=== PATIENT | female | born 1965 | race African-American/Black ===

== ENCOUNTER 2016-03-13 11:38 | Emergency (ER) | payer OTHER ==
[2016-03-13 11:43] VITALS: TEMP 97.7; BMI 23.6
[2016-03-13] MEDS ORDERED: ONDANSETRON 4 MG/2 ML VIAL IVPB ONE (13:28)
[2016-03-13] MEDS ORDERED: SODIUM CHLORIDE 1,000 ML IV ONE (13:44)
--- NOTE | 2016-03-13 13:45 | PDOC ---
History of Present Illness <Ana Mott - Last Filed: 03/13/16 21:26> - General History Source: Patient Exam Limitations: No Limitations - History of Present Illness Travel History: No Initial Comments: 03/13/16 14:10 50y F hx of ?colitis (nonspecific thickening, but was not given abx), chronic back pain multiple back surgeries hl, ectopic x 2, presents with intermittent sharp abdominal pain associated with vomiting that is yellowish with strek of blood this AM so pt presented to the ED. Pt also endorses multliple episodes of loose watery stool. no associated fever/chills, no chest pain, sob, palitations , back pain. no sick contacts. pt currently not working due to back issues no recent travel. <Nick Dee - Last Filed: 03/14/16 09:22> - General Chief Complaint: Vomiting/Diarrhea Stated Complaint: DIARRHEA, VOMITING Time Seen by Provider: 03/13/16 13:30 Past History <Ana Mott - Last Filed: 03/13/16 21:26> - Past Medical History Anemia: No Asthma: No Cancer: No Cardiac Disorders: No CVA: No COPD: No CHF: No Dementia: No Diabetes: No GI Disorders: Yes (diverticulitis, COLITIS) Disorders: No HTN: No Hypercholesterolemia: Yes Liver Disease: No Suicide Attempt (Hx): No Seizures: No Thyroid Disease: No - Surgical History Abdominal Surgery: Yes (Ectopic x 2) Appendectomy: No Cardiac Surgery: No Cholecystectomy: No Lung Surgery: No Neurologic Surgery: No Orthopedic Surgery: Yes (cervical fusion,) - Immunization History Immunization Up to Date: Yes (no flu) - Psycho/Social/Smoking Cessation Hx Anxiety: No Suicidal Ideation: No Smoking History: Never smoked Have you smoked in the past 12 months: No Hx Alcohol Use: No Drug/Substance Use Hx: No Substance Use Type: None Hx Substance Use Treatment: No <Nick Dee - Last Filed: 03/14/16 09:22> - Past Medical History Allergies/Adverse Reactions: Allergies Allergy/AdvReac Type Severity Reaction Status Date / Time Penicillins Allergy Severe Difficulty Verified 03/13/16 11:43 Breathing Sulfa (Sulfonamide Allergy Verified 03/13/16 11:43 Antibiotics) Home Medications: Ambulatory Orders Oxycodone HCl/Acetaminophen [Percocet 5-325 mg Tablet] 1 - 2 tab PO Q6H PRN #12 tab MDD 4 02/05/16 Ciprofloxacin [Cipro (Restricted To Id)] 500 mg PO Q12H #20 tablet 03/13/16 Metronidazole [Flagyl -] 500 mg PO TID #30 tablet 03/13/16 Morphine Sulfate [Kailee] 60 mg PO DAILY 03/13/16 Review of Systems - Review of Systems Able to Perform ROS?: Yes Comments:: 03/13/16 14:12 Constitutional - no reported Fever, Chills, weakness, HEENT: no reported vision changes, sore throat Respiratory: no reported cough, sob, hemoptysis Cardiac: no reported chest pain, palpitations, light headedness, leg swelling Abd/GI: +abd pain, nausea, vomiting, diarrhea no reported blood per rectum, melena, : no reported dysuria, frequency, discharge Musculskelatal - no reported back pain, joint swelling skin - no reported bruising, erythema, rash neurological: no reported headache, numbness, focal weakness, tingling, ataxia, weakness hematologic: no reported anemia, easy bruising, easy bleeding <Nick Dee - Last Filed: 03/14/16 09:22> *Physical Exam - Vital Signs Last Vital Signs Temp Pulse Resp BP Pulse Ox 97.7 F 73 20 116/84 100 03/13/16 11:40 03/13/16 11:40 03/13/16 11:40 03/13/16 11:40 03/13/16 11:40 <Ana Mott - Last Filed: 03/13/16 21:26> - Vital Signs Last Vital Signs Temp Pulse Resp BP Pulse Ox 97.7 F 73 20 116/84 100 03/13/16 11:40 03/13/16 11:40 03/13/16 11:40 03/13/16 11:40 03/13/16 11:40 - Physical Exam Comments: 03/13/16 14:12 GENERAL: The patient is awake, alert, and fully oriented, Nontoxic - in no acute distress. HEAD: Normocephalic, atraumatic. EYES: extraocular movements intact, sclera anicteric, conjunctiva clear. ENT: Normal voice, drym m ucous membranes. NECK: Normal range of motion, supple LUNGS: Breath sounds equal, clear to auscultation bilaterally. No wheezes, no rhonchi, no rales. HEART: Regular rate and rhythm, normal S1 and S2 without murmur, rub or gallop. ABDOMEN: abd mild diffuse tenderness, active bowel sounds. EXTREMITIES: no edema NEUROLOGICAL: No facial assymetry, Normal speech, moving all 4 extremities spontaneously and symmetrically PSYCH: Normal mood, normal affect. SKIN: Warm, Dry, normal turgor, <Leila,Nick - Last Filed: 03/14/16 09:22> ED Treatment Course - LABORATORY CBC & Chemistry Diagram: 03/13/16 14:24 03/13/16 15:13 - ADDITIONAL ORDERS Additional order review: Laboratory Results 03/13/16 03/13/16 03/13/16 15:13 14:24 14:24 Sodium 143 Cancelled Potassium 4.9 Cancelled Chloride 106 Cancelled Carbon Dioxide 27 Cancelled Anion Gap 10 Cancelled BUN 10 Cancelled Creatinine 1.0 Cancelled Creat Clearance w eGFR 58.93 Cancelled Random Glucose 81 Cancelled Calcium 9.2 Cancelled Total Bilirubin 0.5 Cancelled AST 7 L D Cancelled ALT 10 L D Cancelled Alkaline Phosphatase 100 Cancelled Total Protein 6.5 Cancelled Albumin 3.7 Cancelled Serum , Qual Negative Urine Color Yellow Urine Appearance Clear Urine pH 6.0 Ur Specific [place] 1.028 Urine Protein Negative Urine Glucose (UA) Negative Urine Ketones Negative Urine Blood Negative Urine Nitrite Negative Urine Bilirubin Negative Urine Urobilinogen Negative Ur Leukocyte Esterase Trace H D Urine RBC 1 Urine WBC 4 Ur Epithelial Cells Rare Urine Mucus Many 03/13/16 14:24 RBC 5.23 H MCV 79.7 L MCHC 31.5 L RDW 16.0 H MPV 8.5 Neutrophils % 83.7 H Lymphocytes % 10.5 D Monocytes % 5.3 Eosinophils % 0.1 Basophils % 0.4 - Medications Given in the ED: ED Medications Discontinued Medications Generic Name Dose Route Start Last Admin Trade Name Freq PRN Reason Stop Dose Admin Sodium Chloride 1,000 mls @ 1,000 mls/hr 03/13/16 13:44 03/13/16 14:21 Normal Saline - IV 03/13/16 14:43 1,000 mls/hr .Q1H ONE Administration Famotidine/Sodium Chloride 20 50 mls @ 100 mls/hr 03/13/16 14:00 03/13/16 14:22 mg/ Miscellaneous IVPB 03/13/16 14:29 100 mls/hr ONCE ONE Administration Ketorolac Tromethamine 30 mg 03/13/16 17:00 03/13/16 17:24 Toradol Injection - IVPUSH 03/13/16 17:01 30 mg ONCE ONE Administration Morphine Sulfate 2 mg 03/13/16 14:01 03/13/16 14:22 Morphine Injection - IVPUSH 03/13/16 14:02 2 mg ONCE ONE Administration Ondansetron HCl 4 mg 03/13/16 13:28 03/13/16 14:21 Zofran Injection IVPB 03/13/16 13:29 4 mg ONCE ONE Administration <Ana Mott - Last Filed: 03/13/16 21:26> - LABORATORY CBC & Chemistry Diagram: 03/13/16 14:24 03/13/16 15:13 <Nick Dee - Last Filed: 03/14/16 09:22> Medical Decision Making - Medical Decision Making 03/13/16 21:26 Patient Name: Carmen Khoury THIS IS A PRELIMINARY REPORT FROM [facility] EXAM: CT abdomen and pelvis with intravenous and oral contrast IMAGES: [id number] EXAM DATE AND TIME: 2016-03-13 18:53:30.0 REASON FOR EXAM: Abdominal pain and vomiting COMPARISON: None. FINDINGS: The visualized lung bases are clear The upper abdominal visceral organs are unremarkable Small umbilical hernia containing fat There is no bowel obstruction or distention The appendix is normal There is thickening about the base of the cecum in addition to mild circumferential thickening of the distal transverse, descending and sigmoid colon compatible with nonspecific colitis No free air, free fluid or loculated collections Posterior bilateral fixation rods and pedicle screws at L4/L5 with L4 laminectomy and discectomy with disc implants and bone grafts THIS DOCUMENT HAS BEEN ELECTRONICALLY SIGNED <Ana Mott - Last Filed: 03/13/16 21:26> - Medical Decision Making 03/13/16 14:18 suspect gastritis vs. gastronetneritis vs colitis minimal tendeness will ck labs will reassess 03/13/16 19:18 the labs were reivewed ct was obtained due to persistent pain pt s/p CT, and currently awaiting results pt was signed out to dr. mott to fu with CT results and reassess the patient. pt is currently feeling improved, ambulating around the ED, asked to take her IV out, but will defer until the CT results are back. A portion of this note was documented by scribe services under my direction. I have reviewed the details of the note, within reason, and agree with the documentation with the following case summary and management plan written by me <Nick Dee - Last Filed: 03/14/16 09:22> *DC/Admit/Observation/Transfer - Discharge Dispostion Admit: No <Ana Mott - Last Filed: 03/13/16 21:26> <Nick Dee - Last Filed: 03/14/16 09:22> Diagnosis at time of Disposition: Colitis, acute - Discharge Dispostion Disposition: HOME Condition at time of disposition: Improved - Prescriptions Prescriptions: Ciprofloxacin [Cipro (Restricted To Id)] 500 mg PO Q12H #20 tablet Metronidazole [Flagyl -] 500 mg PO TID #30 tablet - Referrals Referrals: Skip Peterson MD [Primary Care Provider] - Alex Pathak MD [Staff Physician] -
[2016-03-13] MEDS ORDERED: FAMOTIDINE 20 MG/50 ML IVPB 20 MG in PREMIX 50 IVPB ONE (14:00)
[2016-03-13] MEDS ORDERED: morphine CARPU-JECT 2 MG/1 ML DISP.SYRIN IVPUSH ONE (14:01)
[2016-03-13] MEDS ORDERED: morphine CARPU-JECT 2 MG/1 ML DISP.SYRIN ONE (14:06)
[2016-03-13] MEDS ORDERED: FAMOTIDINE 20 MG/50 ML IVPB 50 ML IVPB ONE (14:06)
[2016-03-13] MEDS ORDERED: ONDANSETRON 4 MG/2 ML VIAL ONE (14:06)
[2016-03-13 14:29] LABS: BASOPHIL 0.4 % (0-2.0); EOSINOPHIL 0.1 % (0-4.5); MCH 25.1 pg (25.7-33.7); MCHC 31.5 g/dl (32.0-36.0); MEAN CELL VOLUME 79.7 fl (80-96); MEAN PLT VOLUME 8.5 fl (7.5-11.1); NEUTROPHILS 83.7 % (42.8-82.8); PLATELET COUNT 433 K/MM3 (134-434); WHITE BLOOD COUNT 10.7 K/mm3 (4.0-10.0)
[2016-03-13 15:48] LABS: ALBUMIN 3.7 g/dl (3.4-5.0); BILIRUBIN,TOTAL 0.5 mg/dL (0.2-1.0); CALCIUM 9.2 mg/dL (8.5-10.1); TOT PROT 6.5 g/dl (6.4-8.2)
[2016-03-13] MEDS ORDERED: KETOROLAC TROMETHAMINE 30 MG/1 ML VIAL IVPUSH ONE (17:00)
[2016-03-13] MEDS ORDERED: KETOROLAC TROMETHAMINE 30 MG/1 ML VIAL ONE (17:01)
[2016-03-13 18:47] LABS: URINE APPEARANCE CLEAR; URINE BILIRUBIN NEGATIVE (NEGATIVE); URINE BLOOD NEGATIVE (NEGATIVE); URINE COLOR YELLOW; URINE GLUCOSE (UA) NEGATIVE (NEGATIVE); URINE KETONE NEGATIVE (NEGATIVE); URINE NITRITE NEGATIVE (NEGATIVE); URINE PROTEIN NEGATIVE (NEGATIVE); URINE UROBILINOGEN NEGATIVE E.U./dl (0.2-1.0)
[2016-03-13 18:53] LABS: URINE LEUK ESTERASE TRACE (NEGATIVE)
[2016-03-13 19:00] LABS: URINE MUCUS MANY; URINE RBC 1 /hpf (0-3); URINE WBC 4 /hpf (3-5)
[2016-03-13] MEDS ORDERED: LEVOFLOXACIN 500 MG IVPB 100 ML IVPB ONE ×2 (19:56→20:59)
[2016-03-13] MEDS ORDERED: METRONIDAZOLE 500 MG PREMIXED 100 ML IVPB ONE ×2 (19:58→20:25)
[2016-03-13 21:44] VITALS: BP 120/75; PULSE 72
== END 2016-03-13 21:45 | disposition home or self-care (01) ==
LOC: JER 11:38
PROC: 3E0337Z Introduction of Electrolytic and Water Balance Substance into Peripheral Vein, Percutaneous Approach (ICD-10-PCS; principal; 2016-03-13)
PROC: 3E033GC Introduction of Other Therapeutic Substance into Peripheral Vein, Percutaneous Approach (ICD-10-PCS; 2016-03-13)
PROC: 3E033NZ Introduction of Analgesics, Hypnotics, Sedatives into Peripheral Vein, Percutaneous Approach (ICD-10-PCS; 2016-03-13)
PROC: 3E0333Z Introduction of Anti-inflammatory into Peripheral Vein, Percutaneous Approach (ICD-10-PCS; 2016-03-13)
DX: K52.89 Other specified noninfective gastroenteritis and colitis (principal)
CPT/HCPCS: 36415; 74177-TC; 80053; 81003; 81015; 84703; 85025; 96361; 96365; 96375; 99284-25

== ENCOUNTER 2016-08-06 16:17 | Emergency (ER) | payer OTHER ==
[2016-08-06 16:22] VITALS: BP 99/68; PULSE 86; TEMP 98.2; BMI 23.9
--- NOTE | 2016-08-06 16:33 | PDOC ---
History of Present Illness - General History Source: Patient Exam Limitations: No Limitations - History of Present Illness Initial Comments: 08/06/16 17:17 The patient is a 50 year old female with past medical history of chronic back pain and colitis who presents to the ED with back pain. She qualifies the pain as her typical pain that is unrelieved by her Oxycodone, Morphine, or muscle relaxers and is radiating down her bilateral knees. She does not relate her pain to any trauma or falls. She denies any recent fevers, chills, nausea, vomiting, diarrhea. She denies any chest pain or shortness of breath. She denies any urinary symptoms. PCP: Skip Peterson <Lisseth Lewis - Last Filed: 08/06/16 17:16> <Tess Flores - Last Filed: 08/06/16 18:00> - General Chief Complaint: Back Pain Stated Complaint: PAIN Time Seen by Provider: 08/06/16 16:33 Past History <Lisseth Lewis - Last Filed: 08/06/16 17:16> - Past Medical History Anemia: No Asthma: No Cancer: No Cardiac Disorders: No CVA: No COPD: No CHF: No Dementia: No Diabetes: No GI Disorders: Yes (diverticulitis, COLITIS) Disorders: No HTN: No Hypercholesterolemia: Yes Liver Disease: No Suicide Attempt (Hx): No Seizures: No Thyroid Disease: No Other medical history: SPINAL STENOSIS. - Surgical History Abdominal Surgery: Yes (Ectopic x 2) Appendectomy: No Cardiac Surgery: No Cholecystectomy: No Lung Surgery: No Neurologic Surgery: Yes (laminectomy with fusion.) Orthopedic Surgery: Yes (cervical fusion,) - Immunization History Immunization Up to Date: Yes (no flu) - Psycho/Social/Smoking Cessation Hx Anxiety: No Suicidal Ideation: No Smoking History: Never smoked Have you smoked in the past 12 months: No Hx Alcohol Use: No Drug/Substance Use Hx: No Substance Use Type: None Hx Substance Use Treatment: No <Tess Flores - Last Filed: 08/06/16 18:00> - Past Medical History Allergies/Adverse Reactions: Allergies Allergy/AdvReac Type Severity Reaction Status Date / Time Penicillins Allergy Severe Difficulty Verified 08/06/16 16:18 Breathing Sulfa (Sulfonamide Allergy Verified 08/06/16 16:18 Antibiotics) Home Medications: Ambulatory Orders Oxycodone HCl/Acetaminophen [Percocet 5-325 mg Tablet] 1 - 2 tab PO Q6H PRN #12 tab MDD 4 02/05/16 Ciprofloxacin [Cipro (Restricted To Id)] 500 mg PO Q12H #20 tablet 03/13/16 Metronidazole [Flagyl -] 500 mg PO TID #30 tablet 03/13/16 Morphine Sulfate [Kailee] 60 mg PO DAILY 03/13/16 Review of Systems - Review of Systems Able to Perform ROS?: Yes Comments:: 08/06/16 17:17 GENERAL/CONSTITUTIONAL: No fever or chills. No weakness. HEAD, EYES, EARS, NOSE AND THROAT: No change in vision. No ear pain or discharge. No sore throat. CARDIOVASCULAR: No chest pain or shortness of breath. RESPIRATORY: No cough, wheezing, or hemoptysis. GASTROINTESTINAL: No nausea, vomiting, diarrhea or constipation. GENITOURINARY: No dysuria, frequency, or change in urination. MUSCULOSKELETAL: Present: back pain No neck pain. SKIN: No rash NEUROLOGIC: No headache, vertigo, loss of consciousness, or change in strength/ sensation. ENDOCRINE: No increased thirst. No abnormal weight change. HEMATOLOGIC/LYMPHATIC: No anemia, easy bleeding, or history of blood clots. ALLERGIC/IMMUNOLOGIC: No hives or skin allergy. All Other Systems: Reviewed and Negative <Lisseth Lewis - Last Filed: 08/06/16 17:16> *Physical Exam - Vital Signs Last Vital Signs Temp Pulse Resp BP Pulse Ox 98.2 F 86 18 99/68 99 08/06/16 16:17 08/06/16 16:17 08/06/16 16:17 08/06/16 16:17 08/06/16 16:17 - Physical Exam Comments: 08/06/16 17:18 GENERAL: Awake, alert, and fully oriented, in no acute distress HEAD: No signs of trauma EYES: PERRLA, EOMI, sclera anicteric, conjunctiva clear ENT: Auricles normal inspection, hearing grossly normal, nares patent, oropharynx clear without exudates. Moist mucosa NECK: Normal ROM, supple, no lymphadenopathy, JVD, or masses LUNGS: Breath sounds equal, clear to auscultation bilaterally. No wheezes, and no crackles HEART: Regular rate and rhythm, normal S1 and S2, no murmurs, rubs or gallops ABDOMEN: Soft, nontender, normoactive bowel sounds. No guarding, no rebound. No masses EXTREMITIES: Normal range of motion, no edema. No clubbing or cyanosis. No cords, erythema, or tenderness NEUROLOGICAL: Normal speech, normal gait. 5/5 great toe extension bilaterally, 5 /5 plantar flexion bilaterally, 5/5 knee flexion bilaterally, intact to light touch SKIN: Warm, Dry, normal turgor, no rashes or lesions noted. BACK: mild tenderness to thoracic and lumbar spine <Lisseth Lewis - Last Filed: 08/06/16 17:16> - Vital Signs Last Vital Signs Temp Pulse Resp BP Pulse Ox 98.2 F 86 18 99/68 99 08/06/16 16:17 08/06/16 16:17 08/06/16 16:17 08/06/16 16:17 08/06/16 16:17 <Tess Flores - Last Filed: 08/06/16 18:00> Medical Decision Making - Medical Decision Making 08/06/16 17:42 Pt presents to the ED complaining of acute exacerbation of her chronic back pain that has been persistent over the last three days. Denies new complaints-- states that the pain is exactly the same as her chronic pain, and that she has tried her home doses of oxycodone and morphine without relief. Neurologically intact on exam, denies urinary complaints. Will treat with toradol and a small dose of dilaudid and discharge home when pain is controlled. 08/06/16 17:58 Patient feels improved and is asking to go home. Will discharge patient. <Tess Flores - Last Filed: 08/06/16 18:00> *DC/Admit/Observation/Transfer - Attestations Scribe Attestion: 08/06/16 17:20 Documentation prepared by Lisseth Lewis, acting as durable medical equipment repairer for Tess Flores MD. <Lisseth Lewis - Last Filed: 08/06/16 17:16> - Discharge Dispostion Admit: No <Tess Flores - Last Filed: 08/06/16 18:00> Diagnosis at time of Disposition: Lumbar radiculopathy, chronic - Discharge Dispostion Disposition: HOME Condition at time of disposition: Good - Referrals Referrals: Skip Peterson MD [Primary Care Provider] - - Patient Instructions Printed Discharge Instructions: DI for Low Back Pain
[2016-08-06] MEDS ORDERED: HYDROmorphone HCL CARPU-JECT 1 MG/1 ML DISP.SYRIN IM ONE (16:51)
[2016-08-06] MEDS ORDERED: KETOROLAC TROMETHAMINE 30 MG/1 ML VIAL IM ONE (16:51)
[2016-08-06] MEDS ORDERED: HYDROmorphone HCL CARPU-JECT 1 MG/1 ML DISP.SYRIN ONE (17:19)
[2016-08-06] MEDS ORDERED: KETOROLAC TROMETHAMINE 30 MG/1 ML VIAL ONE (17:19)
== END 2016-08-06 18:15 | disposition home or self-care (01) ==
LOC: JER 16:17 → SUPCPDRO 16:17 → JER 18:15
PROC: 3E0333Z Introduction of Anti-inflammatory into Peripheral Vein, Percutaneous Approach (ICD-10-PCS; principal; 2016-08-06)
PROC: 3E033NZ Introduction of Analgesics, Hypnotics, Sedatives into Peripheral Vein, Percutaneous Approach (ICD-10-PCS; 2016-08-06)
DX: M54.16 Radiculopathy, lumbar region (principal); G89.29 Other chronic pain; Z98.1 Arthrodesis status
CPT/HCPCS: 99282-25

== ENCOUNTER 2016-12-12 21:34 | Emergency (ER) | payer OTHER ==
[2016-12-12 21:46] VITALS: BP 146/89; PULSE 76; TEMP 98.3; BMI 23.6
--- NOTE | 2016-12-12 22:51 | PDOC ---
History of Present Illness - General History Source: Patient Exam Limitations: No Limitations - History of Present Illness Initial Comments: 12/13/16 03:59 51F with pmh of . <Alan Damico - Last Filed: 12/13/16 04:01> <Ana Perez - Last Filed: 12/13/16 04:28> - General Chief Complaint: Pain, Acute Stated Complaint: ABDOMINAL PAIN Time Seen by Provider: 12/12/16 22:26 Past History - Past Medical History Anemia: No Asthma: No Cancer: No Cardiac Disorders: No CVA: No COPD: No CHF: No Dementia: No Diabetes: No GI Disorders: Yes (diverticulitis, COLITIS) Disorders: No HTN: No Hypercholesterolemia: Yes Liver Disease: No Seizures: No Thyroid Disease: No - Surgical History Abdominal Surgery: Yes (Ectopic x 2) Appendectomy: No Cardiac Surgery: No Cholecystectomy: No Lung Surgery: No Neurologic Surgery: Yes (laminectomy with fusion.) Orthopedic Surgery: Yes (cervical fusion,) - Immunization History Immunization Up to Date: Yes (no flu) - Suicide/Smoking/Psychosocial Hx Smoking History: Never smoked Have you smoked in the past 12 months: No Information on smoking cessation initiated: No Hx Alcohol Use: No Drug/Substance Use Hx: No Substance Use Type: None Hx Substance Use Treatment: No <Alan Damico - Last Filed: 12/13/16 04:01> <Ana Perez - Last Filed: 12/13/16 04:28> - Past Medical History Allergies/Adverse Reactions: Allergies Allergy/AdvReac Type Severity Reaction Status Date / Time Penicillins Allergy Severe Difficulty Verified 12/12/16 21:45 Breathing Sulfa (Sulfonamide Allergy Verified 12/12/16 21:45 Antibiotics) Home Medications: Ambulatory Orders Loperamide HCl [Imodium -] 2 mg PO DAILY #7 capsule 12/13/16 Ondansetron HCl [Zofran] 8 mg PO PRN #7 tablet 12/13/16 Review of Systems - Review of Systems Constitutional: No: Diaphoresis, Loss of Appetite HEENTM: No: Symptoms Reported Respiratory: No: Symptoms reported Cardiac (ROS): No: Symptoms Reported ABD/GI: Yes: See HPI, Abd. Pain w/ defecation, Diarrhea, Vomiting. No: Difficulty Swallowing, Rectal Bleeding <Alan Damico - Last Filed: 12/13/16 04:01> *Physical Exam - Vital Signs Last Vital Signs Temp Pulse Resp BP Pulse Ox 98.3 F 76 18 146/89 99 12/12/16 21:42 12/12/16 21:42 12/12/16 21:42 12/12/16 21:42 12/12/16 21:42 - Physical Exam General Appearance: Yes: Nourished, Appropriately Dressed HEENT: positive: EOMI, MAR[place], Normal ENT Inspection Neck: negative: Tender Respiratory/Chest: positive: Lungs Clear, Normal Breath Sounds. negative: Chest Tender Cardiovascular: positive: Regular Rhythm, Regular Rate, S1, S2 Gastrointestinal/Abdominal: positive: Normal Bowel Sounds, Tender, Soft, Tenderness. negative: Guarding <Alan Damico - Last Filed: 12/13/16 04:01> - Vital Signs Last Vital Signs Temp Pulse Resp BP Pulse Ox 98.3 F 76 18 146/89 99 12/12/16 21:42 12/12/16 21:42 12/12/16 21:42 12/12/16 21:42 12/12/16 21:42 <Ana Perez - Last Filed: 12/13/16 04:28> ED Treatment Course - LABORATORY CBC & Chemistry Diagram: 12/13/16 01:00 12/13/16 01:00 <Alan Damico - Last Filed: 12/13/16 04:01> - LABORATORY CBC & Chemistry Diagram: 12/13/16 01:00 12/13/16 01:00 - ADDITIONAL ORDERS Additional order review: Laboratory Results 12/12/16 00:30 Stool Occult Blood Negative - Medications Given in the ED: ED Medications Discontinued Medications Generic Name Dose Route Start Last Admin Trade Name Freq PRN Reason Stop Dose Admin Sodium Chloride 1,000 mls @ 1,000 mls/hr 12/12/16 23:36 12/13/16 00:00 Normal Saline - IV 12/13/16 00:35 1,000 mls/hr ASDIR STA Administration <Ana Perez - Last Filed: 12/13/16 04:28> Medical Decision Making - Medical Decision Making 12/13/16 01:13 Pt comes with abdominal pain x 2 days and she states that she has history of diverticulitis/diverticulosis. States that she has had nausea and vomiting and has been unable to keep anything down. Pt is afebrile. She will be hydrated. Labs pending still; we called the lab and they state that they just received labs. Pt is drinking for CT abd /pelvis. 12/13/16 04:27 Patient Name: HUDSON MARIE THIS IS A PRELIMINARY REPORT FROM [facility] DATE OF SERVICE: 2016-12-13 01:51:11 IMAGES: [id number] EXAM: CT ABDOMEN AND PELVIS with and without contrast HISTORY:Rule out colitis COMPARISON: None. FINDINGS:Lung bases are clear. The visualized cardiac chambers are normal size and configuration. Normal liver, gallbladder, pancreas, spleen, adrenal glands and kidneys. The stomach and abdominal small and large bowel are normal. There is no aortic aneurysm. There is no significant retroperitoneal lymphadenopathy. Small fat containing umbilical hernia is noted. The pelvic small and large bowel are normal. The appendix is normal. The uterus and adnexal structures are normal. Urinary bladder is unremarkable. There is a small amount of pelvic free fluid. No discrete pelvic lymphadenopathy is identified. Status post lumbar fusion. IMPRESSION: No definite acute pathology. THIS DOCUMENT HAS BEEN ELECTRONICALLY SIGNED <Ana Perez - Last Filed: 12/13/16 04:28> *DC/Admit/Observation/Transfer - Discharge Dispostion Admit: No <Alan Damico - Last Filed: 12/13/16 04:01> <Ana Perez - Last Filed: 12/13/16 04:28> Diagnosis at time of Disposition: Other specified noninfective gastroenteritis and colitis - Prescriptions Prescriptions: Loperamide HCl [Imodium -] 2 mg PO DAILY #7 capsule Ondansetron HCl [Zofran] 8 mg PO PRN #7 tablet - Referrals Referrals: Alex Pathak MD [Staff Physician] - - Patient Instructions Printed Discharge Instructions: Inflammatory Bowel Disease, DI for Ulcerative Colitis, DI for Gastritis Additional Instructions: Follow up with GI doctor Dr. Alex Pathak
[2016-12-12] MEDS ORDERED: SODIUM CHLORIDE 1,000 ML IV STA (23:36)
[2016-12-12] MEDS ORDERED: ACETAMINOPHEN 1000 MG/100 ML VIAL (NON FORMULARY) IVPB ONE (23:50)
[2016-12-13 01:14] LABS: MCH 26.4 pg (25.7-33.7); MCHC 32.6 g/dl (32.0-36.0); MEAN CELL VOLUME 81.2 fl (80-96); MEAN PLT VOLUME 8.6 fl (7.5-11.1); PLATELET COUNT 330 K/MM3 (134-434); RDW 15.1 % (11.6-15.6); WHITE BLOOD COUNT 8.7 K/mm3 (4.0-10.0)
[2016-12-13] MEDS ORDERED: ACETAMINOPHEN INJECTION 100 ML IVPB ONE (01:22)
[2016-12-13 01:41] LABS: ALBUMIN 3.9 g/dl (3.4-5.0); ALK PHOS 102 U/L (45-117); ANION GAP 10 (8-16); BILIRUBIN,TOTAL 1.2 mg/dL (0.2-1.0); C-REACTIVE PROTEIN < 0.3 MG/DL (0.00-0.3); CALCIUM 9.3 mg/dL (8.5-10.1); CO2 26 mmol/L (21-32); CREATININE 0.9 mg/dL (0.55-1.02); GLUCOSE,RANDOM 81 mg/dL (74-106); SGOT/AST 9 U/L (15-37); SGPT/ALT 23 U/L (12-78); TOT PROT 6.8 g/dl (6.4-8.2)
[2016-12-13 02:35] LABS: ERYTHROCYTE SEDIMENTATION RATE 5 mm/hr (0-30)
--- NOTE | 2016-12-13 04:10 | PDOC ---
Attending Attestation - Resident Resident Name: Alan Damico - HPI HPI: 12/13/16 04:09 Pt comes with abd pain - Physicial Exam PE: 12/13/16 04:09 As above. Pt has diffuse abd tenderness; guaiac negative; labs normal; CT scan normal also. No sign of diverticulitis/diverticulosis. Follow outpatient with GI. 12/13/16 04:51 Agree with resident exam. - Medical Decision Making 12/13/16 04:51 Patient Name: HUDSON MARIE THIS IS A PRELIMINARY REPORT FROM [facility] DATE OF SERVICE: 2016-12-13 01:51:11 IMAGES: [id number] EXAM: CT ABDOMEN AND PELVIS with and without contrast HISTORY:Rule out colitis COMPARISON: None. FINDINGS:Lung bases are clear. The visualized cardiac chambers are normal size and configuration. Normal liver, gallbladder, pancreas, spleen, adrenal glands and kidneys. The stomach and abdominal small and large bowel are normal. There is no aortic aneurysm. There is no significant retroperitoneal lymphadenopathy. Small fat containing umbilical hernia is noted. The pelvic small and large bowel are normal. The appendix is normal. The uterus and adnexal structures are normal. Urinary bladder is unremarkable. There is a small amount of pelvic free fluid. No discrete pelvic lymphadenopathy is identified. Status post lumbar fusion. IMPRESSION: No definite acute pathology. THIS DOCUMENT HAS BEEN ELECTRONICALLY SIGNED
== END 2016-12-13 05:30 | disposition home or self-care (01) ==
LOC: JER 21:34
PROC: 3E0337Z Introduction of Electrolytic and Water Balance Substance into Peripheral Vein, Percutaneous Approach (ICD-10-PCS; principal; 2016-12-12)
PROC: 3E033NZ Introduction of Analgesics, Hypnotics, Sedatives into Peripheral Vein, Percutaneous Approach (ICD-10-PCS; 2016-12-12)
DX: K52.9 Noninfective gastroenteritis and colitis, unspecified (principal)
CPT/HCPCS: 36415; 74178-TC; 80053; 82272; 85027; 85651; 86140; 96361; 96374; 99281-25

== ENCOUNTER 2017-09-05 10:20 | Observation (INO) | payer OTHER ==
[2017-09-05 10:39] VITALS: TEMP 98.7; BMI 23.9
[2017-09-05] MEDS ORDERED: morphine CARPU-JECT 4 MG/1 ML DISP.SYRIN IVPUSH ONE ×3 (11:23→14:52)
[2017-09-05] MEDS ORDERED: SODIUM CHLORIDE 1,000 ML IV SCH (11:30)
[2017-09-05] MEDS ORDERED: ONDANSETRON 4 MG/2 ML VIAL IVPB ONE (12:01)
[2017-09-05] MEDS ORDERED: morphine SULFATE 4 MG/ML VIAL ONE (12:03)
[2017-09-05] MEDS ORDERED: ONDANSETRON 4 MG/2 ML VIAL ONE (12:03)
[2017-09-05 12:39] LABS: BASO % 0.5 % (0-2.0); EOS % 0.1 % (0-4.5); HEMATOCRIT 42.9 % (32.4-45.2); HEMOGLOBIN 13.8 GM/dL (10.7-15.3); LYMPH % 11.1 % (8-40); MCH 26.5 pg (25.7-33.7); MCHC 32.2 g/dl (32.0-36.0); MEAN CELL VOLUME 82.3 fl (80-96); MEAN PLT VOLUME 8.9 fl (7.5-11.1); MONO % 3.7 % (3.8-10.2); NEUT % 84.6 % (42.8-82.8); PLATELET COUNT 306 K/MM3 (134-434); RBC 5.21 M/mm3 (3.60-5.2); RDW 14.5 % (11.6-15.6); WHITE BLOOD COUNT 10.3 K/mm3 (4.0-10.0)
[2017-09-05 13:17] LABS: PROTHROMBIN TIME (PATIENT) 11.3 SEC (9.7-13.0)
[2017-09-05 13:19] LABS: ACTIVATED PTT 24.7 SECONDS (25.2-36.5)
--- NOTE | 2017-09-05 13:55 | PDOC ---
History of Present Illness - History of Present Illness Initial Comments: 09/05/17 13:56 The patient is a 51 year old female with a significant PMH of colitis and diverticulitis presenting with diffuse abdominal pain. The patient describes the abdominal pain as gradual onset, stabbing in nature, constant, and 8/10 in severity. The patient also reports blood per vagina, multiple episodes of diarrhea and noticed blood in her stool. The patient denies any changes in her diet. Patient states she is unable to tolerate PO intake. Patient states her symptoms are similar to her colitis in the past. The patient denies chest pain, shortness of breath, headache and dizziness. Denies fever, chills, nausea, vomit, and constipation. Denies dysuria, frequency, urgency and hematuria. Allergies: Penicillin, sulfa Past surgical history: None reported. Social history: No reported alcohol, drug, or cigarette use. PCP: Dr. Peterson <Evelyn Welsh - Last Filed: 09/05/17 14:12> - General History Source: Patient, Old Records Exam Limitations: No Limitations <Bacilio Gomez - Last Filed: 09/05/17 17:40> - General Chief Complaint: Pain, Acute Stated Complaint: ABD PAIN, VOMITING Time Seen by Provider: 09/05/17 11:22 Past History <Evelyn Welsh - Last Filed: 09/05/17 14:12> - Past Medical History Anemia: No Asthma: No Cancer: No Cardiac Disorders: No CVA: No COPD: No CHF: No Dementia: No Diabetes: No GI Disorders: Yes (diverticulitis, COLITIS) Disorders: No HTN: No Hypercholesterolemia: Yes Liver Disease: No Seizures: No Thyroid Disease: No - Surgical History Abdominal Surgery: Yes (Ectopic x 2) Appendectomy: No Cardiac Surgery: No Cholecystectomy: No Lung Surgery: No Neurologic Surgery: Yes (laminectomy with fusion.) Orthopedic Surgery: Yes (cervical fusion,) - Immunization History Immunization Up to Date: Yes (no flu) - Suicide/Smoking/Psychosocial Hx Smoking History: Never smoked Have you smoked in the past 12 months: No Hx Alcohol Use: No Drug/Substance Use Hx: No Substance Use Type: None Hx Substance Use Treatment: No <Bacilio Gomez - Last Filed: 09/05/17 17:40> - Past Medical History Allergies/Adverse Reactions: Allergies Allergy/AdvReac Type Severity Reaction Status Date / Time Penicillins Allergy Severe Difficulty Verified 09/05/17 10:36 Breathing Sulfa (Sulfonamide Allergy Verified 09/05/17 10:36 Antibiotics) Home Medications: Ambulatory Orders Hydrocodone Bitartrate [Zohydro ER] 10 mg PO BID 09/05/17 Morphine Sulfate 15 mg PO BID 09/05/17 Review of Systems - Review of Systems Able to Perform ROS?: Yes Comments:: 09/05/17 13:56 ADULT ROS GENERAL/CONSTITUTIONAL: No fever or chills. No weakness. HEAD, EYES, EARS, NOSE AND THROAT: No change in vision. No ear pain or discharge. No sore throat. CARDIOVASCULAR: No chest pain or shortness of breath. RESPIRATORY: No cough, wheezing, or hemoptysis. GASTROINTESTINAL: (+) Abdominal pain. (+) Diarrhea. No nausea, vomiting, or constipation. GENITOURINARY: No dysuria, frequency, or change in urination. MUSCULOSKELETAL: No joint or muscle swelling or pain. No neck or back pain. SKIN: No rash NEUROLOGIC: No headache, vertigo, loss of consciousness, or change in strength/ sensation. ENDOCRINE: No increased thirst. No abnormal weight change. HEMATOLOGIC/LYMPHATIC: No anemia, easy bleeding, or history of blood clots. ALLERGIC/IMMUNOLOGIC: No hives or skin allergy. <Evelyn Welsh - Last Filed: 09/05/17 14:12> *Physical Exam - Vital Signs Last Vital Signs Temp Pulse Resp BP Pulse Ox 98.7 F 80 19 129/94 100 09/05/17 10:36 09/05/17 10:36 09/05/17 10:36 09/05/17 10:36 09/05/17 10:36 - Physical Exam Comments: 09/05/17 13:56 ADULT EXAM GENERAL: Awake, alert, and fully oriented, in no acute distress HEAD: No signs of trauma EYES: PERRLA, EOMI, sclera anicteric, conjunctiva clear ENT: Auricles normal inspection, hearing grossly normal, nares patent, oropharynx clear without exudates. Moist mucosa NECK: Normal ROM, supple, no lymphadenopathy, JVD, or masses LUNGS: Breath sounds equal, clear to auscultation bilaterally. No wheezes, and no crackles HEART: Regular rate and rhythm, normal S1 and S2, no murmurs, rubs or gallops ABDOMEN: (+) Tender. Soft, normoactive bowel sounds. No guarding, no rebound. No masses EXTREMITIES: Normal range of motion, no edema. No clubbing or cyanosis. N o cords, erythema, or tenderness <Evelyn Welsh - Last Filed: 09/05/17 14:12> - Vital Signs Last Vital Signs Temp Pulse Resp BP Pulse Ox 98.7 F 80 19 129/94 100 09/05/17 10:36 09/05/17 10:36 09/05/17 10:36 09/05/17 10:36 09/05/17 10:36 - Physical Exam Comments: 09/05/17 14:26 RECTAL: External hemorrhoids appreciated. No anal tears. Brown stool on glove. <Bacilio Gomez - Last Filed: 09/05/17 17:40> ED Treatment Course - LABORATORY CBC & Chemistry Diagram: 09/05/17 12:10 09/05/17 12:10 - ADDITIONAL ORDERS Additional order review: Laboratory Results 09/05/17 09/05/17 09/05/17 12:10 12:10 12:10 PT with INR 11.30 INR 1.00 PTT (Actin FS) 24.7 L Sodium Cancelled Potassium Cancelled Chloride Cancelled Carbon Dioxide Cancelled Anion Gap Cancelled BUN Cancelled Creatinine Cancelled Creat Clearance w eGFR Cancelled Random Glucose Cancelled Lactic Acid 2.7 H* Calcium Cancelled Total Bilirubin Cancelled AST Cancelled ALT Cancelled Alkaline Phosphatase Cancelled C-Reactive Protein Cancelled Total Protein Cancelled Albumin Cancelled Lipase Cancelled 09/05/17 12:10 RBC 5.21 H MCV 82.3 MCHC 32.2 RDW 14.5 MPV 8.9 Neutrophils % 84.6 H Lymphocytes % 11.1 Monocytes % 3.7 L Eosinophils % 0.1 Basophils % 0.5 - Medications Given in the ED: ED Medications Discontinued Medications Generic Name Dose Route Start Last Admin Trade Name Freq PRN Reason Stop Dose Admin Morphine Sulfate 4 mg 09/05/17 11:23 09/05/17 12:11 Morphine Injection - IVPUSH 09/05/17 11:24 4 mg ONCE ONE Administration Morphine Sulfate 4 mg 09/05/17 12:02 09/05/17 12:12 Morphine Injection - IVPUSH 09/05/17 12:03 4 mg ONCE ONE Administration Ondansetron HCl 4 mg 09/05/17 12:01 09/05/17 12:12 Zofran Injection IVPB 09/05/17 12:02 4 mg ONCE ONE Administration <Evelyn Welsh - Last Filed: 09/05/17 14:12> - LABORATORY CBC & Chemistry Diagram: 09/05/17 12:10 09/05/17 14:10 - ADDITIONAL ORDERS Additional order review: Laboratory Results 09/05/17 09/05/17 12:10 12:10 Sodium Cancelled Potassium Cancelled Chloride Cancelled Carbon Dioxide Cancelled Anion Gap Cancelled BUN Cancelled Creatinine Cancelled Creat Clearance w eGFR Cancelled Random Glucose Cancelled Lactic Acid 2.7 H* Calcium Cancelled Total Bilirubin Cancelled AST Cancelled ALT Cancelled Alkaline Phosphatase Cancelled C-Reactive Protein Cancelled Total Protein Cancelled Albumin Cancelled Lipase Cancelled 09/05/17 12:10 RBC 5.21 H MCV 82.3 MCHC 32.2 RDW 14.5 MPV 8.9 Neutrophils % 84.6 H Lymphocytes % 11.1 Monocytes % 3.7 L Eosinophils % 0.1 Basophils % 0.5 - RADIOLOGY Radiology Studies Ordered: Category Date Time Status ABDOMEN & PELVIS CT WITH CONTR [CT] Stat CT Scan 09/05/17 12:02 Ordered TRANSVAGINAL ULTRASOUND US [US] Stat Ultrasound 09/05/17 12:03 Ordered - Medications Given in the ED: ED Medications Discontinued Medications Generic Name Dose Route Start Last Admin Trade Name Kd PRN Reason Stop Dose Admin Morphine Sulfate 4 mg 09/05/17 11:23 09/05/17 12:11 Morphine Injection - IVPUSH 09/05/17 11:24 4 mg ONCE ONE Administration Morphine Sulfate 4 mg 09/05/17 12:02 09/05/17 12:12 Morphine Injection - IVPUSH 09/05/17 12:03 4 mg ONCE ONE Administration Ondansetron HCl 4 mg 09/05/17 12:01 09/05/17 12:12 Zofran Injection IVPB 09/05/17 12:02 4 mg ONCE ONE Administration <Bacilio Gomez - Last Filed: 09/05/17 17:40> Medical Decision Making - Medical Decision Making 09/05/17 13:47 A portion of this note was documented by scribe services under my direction. I have reviewed the details of the note, within reason, and agree with the documentation with the following case summary and management plan written by me. Patient treated in the ED. Nursing notes are reviewed and incorporated into the medical decision-making. Vital signs reviewed. Peripheral IV access obtained by the nurse, laboratory studies are drawn and sent, reviewed and interpreted by myself. Vital Signs Temp Pulse Resp BP Pulse Ox 98.7 F 80 19 129/94 100 09/05/17 10:36 09/05/17 10:36 09/05/17 10:36 09/05/17 10:36 09/05/17 10:36 51-year-old female with past medical history of diverticulitis, multiple back surgeries, colitis presents with diffuse abdominal pain for 2 days. Patient reported worsening abdominal pain. She started noticed persistent lower abdominal pain consistent with her prior abdominal pains. Patient started note some blood in her stools. Incidentally, patient also noted an episode of blood per vagina. She states she is menopausal and has not had this episode before. Reports nausea and vomiting. Given the abdominal pain, differential includes colitis, diverticulitis, other acute abdominal pathology. Rule out bowel obstruction. Labs and CAT scan the abdomen pelvis. With post menopausal bleeding, we'll need to rule out malignant causes. We'll obtain a transvaginal ultrasound. Reassess. 09/05/17 17:40 CBC, BMP 09/05/17 12:10 09/05/17 14:10 CMP Sodium 142 mmol/L (136-145) 09/05/17 14:10 Potassium 4.9 mmol/L (3.5-5.1) 09/05/17 14:10 Chloride 110 mmol/L (98-107) H 09/05/17 14:10 Carbon Dioxide 24 mmol/L (21-32) 09/05/17 14:10 Anion Gap 8 (8-16) 09/05/17 14:10 BUN 13 mg/dL (7-18) 09/05/17 14:10 Creatinine 0.8 mg/dL (0.55-1.02) 09/05/17 14:10 Creat Clearance w eGFR > 60 (>60) 09/05/17 14:10 Random Glucose 73 mg/dL (74-106) L 09/05/17 14:10 Lactic Acid 3.2 mmol/L (0.0-2.0) H* 09/05/17 14:10 Calcium 8.4 mg/dL (8.5-10.1) L 09/05/17 14:10 Total Bilirubin 0.7 mg/dL (0.2-1.0) 09/05/17 14:10 AST 29 U/L (15-37) 09/05/17 14:10 ALT 24 U/L (12-78) 09/05/17 14:10 Alkaline Phosphatase 86 U/L (45-117) 09/05/17 14:10 C-Reactive Protein < 0.3 MG/DL (0.00-0.3) 09/05/17 14:10 Total Protein 6.6 g/dl (6.4-8.2) 09/05/17 14:10 Albumin 3.5 g/dl (3.4-5.0) 09/05/17 14:10 Lipase Cancelled 09/05/17 12:10 CAT scan the head and pelvis demonstrates few diverticula without evidence of acute diverticular. There is a symptomatically collapse of the gastric body. Transvaginal ultrasound demonstrates normal-appearing uterus and normal thickening of the endometrial stripe. The patient continued persistent abdominal pain. Given the elevated lactic acid and similar type pain, and limited reading of CAT scan abdomen pelvis, we'll treat as colitis. Levaquin and Flagyl was ordered. I expect the patient regarding the vaginal ultrasound. I instructed the patient will need further workup either inpatient or outpatient for malignancy workup including cancer. She states that she will follow-up as an outpatient with a occ ther and is aware that this is important. Case is discussed with sharon hospitalist. Accepted to med/surg obs. Case discussed in detail with admitting physician including history, physical exam and ancillary studies. Admitting physician has assumed care for the patient, will follow all pending diagnostics and will complete the evaluation and treatment. <Bacilio Gomez - Last Filed: 09/05/17 17:40> *DC/Admit/Observation/Transfer - Attestations Scribe Attestion: 09/05/17 13:56 Documentation prepared by Evelyn Welsh, acting as medical information officer for Bacilio Gomez MD. <Evelyn Welsh - Last Filed: 09/05/17 14:12> - Discharge Dispostion Decision to Admit order: Yes <Bacilio Gomez - Last Filed: 09/05/17 17:40> Diagnosis at time of Disposition: Colitis - Discharge Dispostion Condition at time of disposition: Stable - Referrals Referrals: Skip Peterson MD [Primary Care Provider] - - Patient Instructions - Post Discharge Activity
[2017-09-05 14:36] LABS: URINE APPEARANCE CLEAR; URINE BILIRUBIN NEGATIVE (<2.0 mg/dL); URINE COLOR LTYELLOW; URINE GLUCOSE (UA) NEGATIVE (NEGATIVE); URINE KETONE NEGATIVE (NEGATIVE); URINE LEUK ESTERASE NEGATIVE (NEGATIVE); URINE NITRITE NEGATIVE (NEGATIVE); URINE PROTEIN NEGATIVE (NEGATIVE); URINE UROBILINOGEN NEGATIVE mg/dL (0.2-1.0)
[2017-09-05 14:42] LABS: EPI CELLS RARE /HPF (FEW); URINE MUCUS RARE
[2017-09-05] MEDS ORDERED: MORPHINE SULFATE 10 MG/1 ML *VIAL ONE (14:53)
[2017-09-05 15:13] LABS: ALBUMIN 3.5 g/dl (3.4-5.0); ANION GAP 8 (8-16); BLOOD UREA NITROGEN 13 mg/dL (7-18); CALCIUM 8.4 mg/dL (8.5-10.1); CHLORIDE 110 mmol/L (98-107); CO2 24 mmol/L (21-32); CREATININE 0.8 mg/dL (0.55-1.02); GLUCOSE,RANDOM 73 mg/dL (74-106); SGPT/ALT 24 U/L (12-78); SODIUM 142 mmol/L (136-145)
[2017-09-05 15:14] LABS: ALK PHOS 86 U/L (45-117); BILIRUBIN,TOTAL 0.7 mg/dL (0.2-1.0); TOT PROT 6.6 g/dl (6.4-8.2)
[2017-09-05 15:14] LABS: HCG,QUALITATIVE URINE NEGATIVE
[2017-09-05 15:17] LABS: ERYTHROCYTE SEDIMENTATION RATE 3 mm/hr (0-30)
[2017-09-05 16:03] LABS: POTASSIUM 4.9 mmol/L (3.5-5.1); SGOT/AST 29 U/L (15-37)
[2017-09-05 20:29] VITALS: BP 135/78; PULSE 79
--- NOTE | 2017-09-05 20:29 | HP ---
CHIEF COMPLAINT: PCP: HISTORY OF PRESENT ILLNESS: ER course was notable for: (1) (2) (3) Recent Travel: PAST MEDICAL HISTORY: PAST SURGICAL HISTORY: Social History: Smoking: Alcohol: Drugs: Family History: Allergies Penicillins Allergy (Severe, Verified 09/05/17 10:36) Difficulty Breathing Sulfa (Sulfonamide Antibiotics) Allergy (Verified 09/05/17 10:36) HOME MEDICATIONS: Home Medications Medication Instructions Recorded Hydrocodone Bitartrate [Zohydro ER] 10 mg PO BID 09/05/17 Morphine Sulfate 15 mg PO BID 09/05/17 REVIEW OF SYSTEMS CONSTITUTIONAL: Absent: fever, chills, diaphoresis, generalized weakness, malaise, loss of appetite, weight change HEENT: Absent: rhinorrhea, nasal congestion, throat pain, throat swelling, difficulty swallowing, mouth swelling, ear pain, eye pain, visual changes CARDIOVASCULAR: Absent: chest pain, syncope, palpitations, irregular heart rate, lightheadedness , peripheral edema RESPIRATORY: Absent: cough, shortness of breath, dyspnea with exertion, orthopnea, wheezing, stridor, hemoptysis GASTROINTESTINAL: Absent: abdominal pain, abdominal distension, nausea, vomiting, diarrhea, constipation, melena, hematochezia GENITOURINARY: Absent: dysuria, frequency, urgency, hesitancy, hematuria, flank pain, genital pain MUSCULOSKELETAL: Absent: myalgia, arthralgia, joint swelling, back pain, neck pain SKIN: Absent: rash, itching, pallor HEMATOLOGIC/IMMUNOLOGIC: Absent: easy bleeding, easy bruising, lymphadenopathy, frequent infections ENDOCRINE: Absent: unexplained weight gain, unexplained weight loss, heat intolerance, cold intolerance NEUROLOGIC: Absent: headache, focal weakness or paresthesias, dizziness, unsteady gait, seizure, mental status changes, bladder or bowel incontinence PSYCHIATRIC: Absent: anxiety, depression, suicidal or homicidal ideation, hallucinations. PHYSICAL EXAMINATION Vital Signs - 24 hr 09/05/17 09/05/17 09/05/17 10:36 16:43 20:28 Temperature 98.7 F Pulse Rate 80 Pulse Rate [ 75 79 Apical] Respiratory 19 18 18 Rate Blood Pressure 129/94 Blood Pressure 138/90 135/78 [Right Arm] O2 Sat by Pulse 100 98 100 Oximetry (%) GENERAL: Awake, alert, and fully oriented, in no acute distress. HEAD: Normal with no signs of trauma. EYES: Pupils equal, round and reactive to light, extraocular movements intact, sclera anicteric, conjunctiva clear. No lid lag. EARS, NOSE, THROAT: Ears normal, nares patent, oropharynx clear without exudates. Moist mucous membranes. NECK: Normal range of motion, supple without lymphadenopathy, JVD, or masses. LUNGS: Breath sounds equal, clear to auscultation bilaterally. No wheezes, and no crackles. No accessory muscle use. HEART: Regular rate and rhythm, normal S1 and S2 without murmur, rub or gallop. ABDOMEN: Soft, nontender, not distended, normoactive bowel sounds, no guarding, no rebound, no masses. No hepatomegaly or splenomegaly. MUSCULOSKELETAL: Normal range of motion at all joints. No bony deformities or tenderness. No CVA tenderness. UPPER EXTREMITIES: 2+ pulses, warm, well-perfused. No cyanosis. No clubbing. No peripheral edema. LOWER EXTREMITIES: 2+ pulses, warm, well-perfused. No calf tenderness. No peripheral edema. NEUROLOGICAL: Cranial nerves II-XII intact. Normal speech. Normal gait. PSYCHIATRIC: Cooperative. Good eye contact. Appropriate mood and affect. SKIN: Warm, dry, normal turgor, no rashes or lesions noted, normal capillary refill. Laboratory Results - last 24 hr 09/05/17 09/05/17 09/05/17 12:10 12:10 12:10 WBC 10.3 H RBC 5.21 H Hgb 13.8 Hct 42.9 MCV 82.3 MCH 26.5 MCHC 32.2 RDW 14.5 Plt Count 306 MPV 8.9 Absolute Neuts (auto) 8.7 Neutrophils % 84.6 H Lymphocytes % 11.1 Monocytes % 3.7 L Eosinophils % 0.1 Basophils % 0.5 Nucleated RBC % 0 ESR 3 PT with INR 11.30 INR 1.00 PTT (Actin FS) 24.7 L Sodium Cancelled Potassium Cancelled Chloride Cancelled Carbon Dioxide Cancelled Anion Gap Cancelled BUN Cancelled Creatinine Cancelled Creat Clearance w eGFR Cancelled Random Glucose Cancelled Lactic Acid Calcium Cancelled Total Bilirubin Cancelled AST Cancelled ALT Cancelled Alkaline Phosphatase Cancelled C-Reactive Protein Cancelled Total Protein Cancelled Albumin Cancelled Lipase Cancelled Urine Color Urine Appearance Urine pH Ur Specific [place] Urine Protein Urine Glucose (UA) Urine Ketones Urine Blood Urine Nitrite Urine Bilirubin Urine Urobilinogen Ur Leukocyte Esterase Urine WBC (Auto) Urine RBC (Auto) Ur Epithelial Cells Urine Mucus Urine HCG, Qual Stool Occult Blood 09/05/17 09/05/17 09/05/17 12:10 13:25 14:10 WBC RBC Hgb Hct MCV MCH MCHC RDW Plt Count MPV Absolute Neuts (auto) Neutrophils % Lymphocytes % Monocytes % Eosinophils % Basophils % Nucleated RBC % ESR PT with INR INR PTT (Actin FS) Sodium 142 Potassium 4.9 Chloride 110 H Carbon Dioxide 24 Anion Gap 8 BUN 13 Creatinine 0.8 Creat Clearance w eGFR > 60 Random Glucose 73 L Lactic Acid 2.7 H* Calcium 8.4 L Total Bilirubin 0.7 AST 29 ALT 24 Alkaline Phosphatase 86 C-Reactive Protein Total Protein 6.6 Albumin 3.5 Lipase Urine Color Ltyellow Urine Appearance Clear Urine pH 7.0 Ur Specific Nap[place] 1.016 Urine Protein Negative Urine Glucose (UA) Negative Urine Ketones Negative Urine Blood 2+ H Urine Nitrite Negative Urine Bilirubin Negative Urine Urobilinogen Negative Ur Leukocyte Esterase Negative Urine WBC (Auto) 1 Urine RBC (Auto) 1 Ur Epithelial Cells Rare Urine Mucus Rare Urine HCG, Qual Negative Stool Occult Blood 09/05/17 09/05/17 09/05/17 14:10 14:10 14:32 WBC RBC Hgb Hct MCV MCH MCHC RDW Plt Count MPV Absolute Neuts (auto) Neutrophils % Lymphocytes % Monocytes % Eosinophils % Basophils % Nucleated RBC % ESR PT with INR INR PTT (Actin FS) Sodium Potassium Chloride Carbon Dioxide Anion Gap BUN Creatinine Creat Clearance w eGFR Random Glucose Lactic Acid 3.2 H* Calcium Total Bilirubin AST ALT Alkaline Phosphatase C-Reactive Protein < 0.3 Total Protein Albumin Lipase Urine Color Urine Appearance Urine pH Ur Specific Nap[place] Urine Protein Urine Glucose (UA) Urine Ketones Urine Blood Urine Nitrite Urine Bilirubin Urine Urobilinogen Ur Leukocyte Esterase Urine WBC (Auto) Urine RBC (Auto) Ur Epithelial Cells Urine Mucus Urine HCG, Qual Stool Occult Blood Negative ASSESSMENT/PLAN: Hospitalist Screening - Colonoscopy Questionnaire Colonoscopy Questionnaire: Colonoscopy Questionnaire
[2017-09-05] MEDS ORDERED: morphine SULFATE 4 MG/ML VIAL IVPUSH PRN (20:34)
[2017-09-05] MEDS ORDERED: ONDANSETRON 4 MG/2 ML VIAL IVPUSH PRN (20:35)
[2017-09-05] MEDS ORDERED: DEXTROSE 5%-0.45% SALINE 1,000 ML IV SCH (20:45)
--- NOTE | 2017-09-06 00:55 | HOSP ---
Subjective - Review of Symptoms Events since last encounter: Hospitalist Encounter Arrived to ED to admit patient. Per primary nurse, patient eloped from the ED at 21:00. Physical Examination Vital Signs: Vital Signs Temperature 98.7 F 09/05/17 10:36 Pulse Rate 79 09/05/17 20:28 Respiratory Rate 18 09/05/17 20:28 Blood Pressure 135/78 09/05/17 20:28 O2 Sat by Pulse Oximetry (%) 100 09/05/17 20:28 Labs: CBC, BMP 09/05/17 12:10 09/05/17 14:10
== END 2017-09-05 21:00 | disposition left against medical advice (07) ==
LOC: JER 10:20 → JERBED 17:40
PROVIDERS: ADMIT Family Medicine; ATTEND Family Medicine
PROC: 3E03329 Introduction of Other Anti-infective into Peripheral Vein, Percutaneous Approach (ICD-10-PCS; principal; 2017-09-05)
PROC: 3E033NZ Introduction of Analgesics, Hypnotics, Sedatives into Peripheral Vein, Percutaneous Approach (ICD-10-PCS; 2017-09-05)
PROC: 3E0337Z Introduction of Electrolytic and Water Balance Substance into Peripheral Vein, Percutaneous Approach (ICD-10-PCS; 2017-09-05)
DX: K52.9 Noninfective gastroenteritis and colitis, unspecified (principal)
CPT/HCPCS: 36415; 74176-TC; 76830-TC; 80053; 81003; 81015; 82272; 83605; 84703; 85025; 85610; 85651; 85730; 86140; 87040; 87086; 96365; 96368; 96375; 96376; 99284-25; G0378; J7030

== ENCOUNTER 2018-01-01 18:21 | Emergency (ER) | payer OTHER ==
[2018-01-01 18:26] VITALS: BMI 25.9
[2018-01-01] MEDS ORDERED: CYCLOBENZAPRINE HCL 10 MG TABLET (FP) PO ONE (19:01)
[2018-01-01] MEDS ORDERED: CYCLOBENZAPRINE HCL 10 MG TABLET (FP) ONE (19:06)
--- NOTE | 2018-01-01 20:33 | PDOC ---
Attending Attestation - Resident Resident Name: Jazmin Hooper - ED Attending Attestation I have performed the following: I have examined & evaluated the patient, The case was reviewed & discussed with the resident, I agree w/resident's findings & plan - HPI HPI: 01/01/18 20:48 Pt comes requesting pain meds for her chronic back pain. She was given her meds last week as well as earlier this week. She will be denied narcotics here. - Physicial Exam PE: 01/01/18 20:49 Agree with resident exam. - Medical Decision Making 01/01/18 20:31 Others' Prescriptions Patient Name: Carmen Marie Date: 1965 Address: [address] [place] [address] Sex: Female Rx Written Rx Dispensed Drug Quantity Days Supply Prescriber Name 12/27/2017 12/29/2017 alprazolam 2 mg tablet 40 20 Skip Peterson S 12/20/2017 12/21/2017 hydrocodone-acetaminophen 10-325 mg tablet 120 30 Noble Beasley,M 12/20/2017 12/21/2017 morphine sulf er 15 mg tablet 60 30 Noble Beasley,M 12/20/2017 12/20/2017 zolpidem tartrate 10 mg tablet 30 30 Skip Peterson 11/18/2017 11/18/2017 hydrocodone-acetaminophen 10-325 mg tablet 120 30 Noble Beasley,M 11/18/2017 11/18/2017 morphine sulf er 15 mg tablet 60 30 Noble Beasley,M 10/18/2017 10/18/2017 hydrocodone-acetaminophen 10-325 mg tablet 120 30 Noble Beasley,M 10/18/2017 10/18/2017 morphine sulf er 15 mg tablet 60 30 Noble Beasley,M 09/06/2017 09/09/2017 morphine sulf er 15 mg tablet 60 30 Noble Beasley,M 09/06/2017 09/09/2017 hydrocodone-acetaminophen 10-325 mg tablet 120 30 Noble Beasley,M 09/01/2017 09/07/2017 alprazolam 2 mg tablet 40 20 Fran Arce 05/26/2017 08/30/2017 zolpidem tartrate 10 mg tablet 30 30 Fran Arce 08/25/2017 08/25/2017 alprazolam 1 mg tablet 14 7 Fran Arce 08/02/2017 08/06/2017 hydrocodone-acetaminophen 10-325 mg tablet 120 30 Elzholz, Noble 08/02/2017 08/06/2017 morphine sulf er 15 mg tablet 60 30 Elzholz, Noble 05/26/2017 08/01/2017 zolpidem tartrate 10 mg tablet 30 30 Claude Fran 07/19/2017 07/19/2017 alprazolam 1 mg tablet 14 7 Claude Fran 06/29/2017 07/07/2017 morphine sulf er 15 mg tablet 60 30 Elzholz, Noble 06/29/2017 07/07/2017 hydrocodone-acetaminophen 10-325 mg tablet 120 30 Elzholz, Noble 05/26/2017 07/02/2017 zolpidem tartrate 10 mg tablet 30 30 Claude Fran 06/07/2017 06/08/2017 hydrocodone-acetaminophen 10-325 mg tablet 120 30 Elzholz, Noble 06/07/2017 06/08/2017 morphine sulf er 15 mg tablet 60 30 Elzholz, Noble 01/01/18 22:29 Referring Physician: FLORENCE BOCANEGRA Patient Name: CARMEN MARIE THIS IS A PRELIMINARY REPORT FROM [facility] DATE OF SERVICE: 2018-01-01 20:59:49 IMAGES: [id number] Exam: CT lumbar spine without IV contrast. Clinical indication: Low back pain. There are no prior studies available for comparison. Technique: Axial unenhanced CT images from the lower thoracic spine through the mid sacrum were obtained followed by coronal and sagittal reformats. Findings: There are 5 known rib-bearing lumbar vertebra. The alignment of the lumbar spine is within normal limits. CONFIDENTIALITY NOTICE: This information is intended only for the use of the recipient(s) named above. If you are not the intended recipient, or a person responsible for delivering it to the intended recipient, you are hereby notified that any disclosure, copying, distribution or use of any of the information contained in or attached to this transmission is STRICTLY PROHIBITED. If you have received this transmission in error, please immediately notify [facility] Staff Nurse and destroy the original transmission and its attachments without saving them in any manner [address] [place] [address] [id number] [address] [place] [address] Phone: [phone] ([phone]) Fax: Email: [email or web address] Patient Information: : 1965 Order Type: Preliminary Name: CYNTHIA TREVIÑO Sex: F Study Description: CT LUMBAR SPINE Modality: CT Location: [facility] Referring Physician: FLORENCE BOCANEGRA There is been a prior posterior by pedicular fusion of C4 and C5 with insertion of a disc spacer and posterior decompression at the L4 level. There is no CT evidence of hardware complication. The T12-L1 and L1-L2 levels are within normal limits for the patient's age, without spinal stenosis or neural foraminal narrowing. At the L2-L3 level there is mild facet hypertrophic degenerative changes, causing mild bilateral neural foraminal narrowing, but no spinal stenosis. At the L3-L4 level there is some beam hardening artifact from the surgical hardware which is obscuring fine detail. Cannot comment on disc bulge, but there is some facet hypertrophic degenerative changes, causing mild bilateral neural foraminal narrowing. At the L4-L5 level noted skin made of the prior surgery with beam hardening artifact from the surgical hardware, but no spinal stenosis or neural foraminal narrowing. At the L5-S1 level there is a mild broad-based posterior disc bulge associated with mild facet hypertrophic degenerative changes, causing minimal right and [id number] left neural foraminal narrowing, but no spinal stenosis. The visualized soft tissues are unremarkable. Impression: 1. Evidence of prior L4-L5 posterior spinal fusion and decompression, without CT evidence of hardware complication. 2. Degenerative changes with neural foraminal narrowing, as described above on a level by level basis. THIS DOCUMENT HAS BEEN ELECTRONICALLY SIGNED
--- NOTE | 2018-01-01 21:08 | PDOC ---
History of Present Illness - General Chief Complaint: Chronic pain Stated Complaint: BACK PAIN Time Seen by Provider: 01/01/18 18:37 History Source: Patient - History of Present Illness Initial Comments: 01/01/18 20:44 52 year old woman with history of back pain that has worsened over the past 2 days. She takes hydrocodone, morphine, alprazolam. She reports that she had refilled her pain medications several days ago but had thrown them away because she was angry that they were not working for her. She reports she does not know Past History - Past Medical History Allergies/Adverse Reactions: Allergies Allergy/AdvReac Type Severity Reaction Status Date / Time Penicillins Allergy Severe Difficulty Verified 01/01/18 18:26 Breathing Sulfa (Sulfonamide Allergy Verified 01/01/18 18:26 Antibiotics) Home Medications: Ambulatory Orders Hydrocodone Bitartrate [Zohydro ER] 10 mg PO BID 09/05/17 Morphine Sulfate 15 mg PO BID 09/05/17 Anemia: No Asthma: No Cancer: No Cardiac Disorders: No CVA: No COPD: No CHF: No Dementia: No Diabetes: No GI Disorders: Yes (diverticulitis, COLITIS) Disorders: No HTN: No Hypercholesterolemia: Yes Liver Disease: No Seizures: No Thyroid Disease: No - Surgical History Abdominal Surgery: Yes (Ectopic x 2) Appendectomy: No Cardiac Surgery: No Cholecystectomy: No Lung Surgery: No Neurologic Surgery: Yes (laminectomy with fusion. cervical with fusion) Orthopedic Surgery: Yes (cervical fusion,) - Immunization History Immunization Up to Date: Yes (no flu) - Suicide/Smoking/Psychosocial Hx Smoking History: Never smoked Have you smoked in the past 12 months: No Hx Alcohol Use: No Drug/Substance Use Hx: No Substance Use Type: None Hx Substance Use Treatment: No *Physical Exam - Vital Signs Last Vital Signs Temp Pulse Resp BP Pulse Ox 97.8 F 88 18 128/78 99 01/01/18 18:22 01/01/18 18:22 01/01/18 18:22 01/01/18 18:22 01/01/18 18:22 ED Treatment Course - RADIOLOGY Radiology Studies Ordered: Category Date Time Status LUMBAR SPINE CT W/O CONTRAST [CT] Stat CT Scan 01/01/18 20:31 Ordered - Medications Given in the ED: ED Medications Discontinued Medications Generic Name Dose Route Start Last Admin Trade Name Freq PRN Reason Stop Dose Admin Cyclobenzaprine HCl 10 mg 01/01/18 19:01 01/01/18 19:07 Flexeril - PO 01/01/18 19:02 10 mg ONCE ONE Administration Medical Decision Making - Medical Decision Making 01/01/18 22:20 Patient able to ambulate to the front office secretary Pending CT scan final reading. Patient desires to go to [place]. 01/01/18 22:39 CT: unremarkable, L4-L5 fusion, degenerative changes w/ neural foramina narrowing. *DC/Admit/Observation/Transfer Diagnosis at time of Disposition: Back pain - Discharge Dispostion Disposition: HOME Condition at time of disposition: Stable Decision to Admit order: No - Referrals Referrals: Skip Peterson MD [Primary Care Provider] - - Patient Instructions Printed Discharge Instructions: DI for Low Back Pain Additional Instructions: You were seen in the ED for complaints of back pain. In the ED you were evaluated with imaging and treated with muscle relaxants. Your CT scan was unremarkable and you showed improvement as you were able to walk without difficulty. There does not appear to be an acute need for immediate hospitalization. You are advised to follow up with your Primary Care Physician within 1 week. Return to the ED immediately if you experience worsening back pain, incontinence , numbness in the legs or groin, blood in the urine, or muscle weakness. - Post Discharge Activity
[2018-01-01 23:01] VITALS: BP 124/72; PULSE 76; TEMP 98.9
== END 2018-01-01 23:01 | disposition home or self-care (01) ==
LOC: JER 18:21 → JERFT 18:21 → JER 23:01
DX: M54.5 Low back pain (principal); G89.29 Other chronic pain; Z98.1 Arthrodesis status
CPT/HCPCS: 72131-TC; 99282-25

== ENCOUNTER 2018-03-03 19:48 | Emergency (ER) | payer OTHER ==
--- NOTE | 2018-03-03 19:53 | PDOC ---
Rapid Medical Evaluation Time Seen by Provider: 03/03/18 19:52 Medical Evaluation: Allergies Allergy/AdvReac Type Severity Reaction Status Date / Time Penicillins Allergy Severe Difficulty Verified 01/01/18 18:26 Breathing Sulfa (Sulfonamide Allergy Verified 01/01/18 18:26 Antibiotics) 03/03/18 19:52 I have performed a brief in-person evaluation of this patient. The patient presents with a chief complaint of: diarhea, n/v w/ upper abd pain x 2 days. H/o colitis and diverticulitis, no surgeries Pertinent physical exam findings:arleen uncomfortable w/ +ttp to mid upper abd, mildly elevated BP at triage I have ordered the following:labs The patient will proceed to the ED for further evaluation. Discharge Disposition - Diagnosis Abdominal pain Qualifiers: Abdominal location: unspecified location Qualified Code(s): R10.9 - Unspecified abdominal pain - Referrals Referrals: Skip Peterson MD [Primary Care Provider] - - Patient Instructions - Post Discharge Activity
[2018-03-03 19:55] VITALS: TEMP 98.1; BMI 25.8
--- NOTE | 2018-03-03 21:07 | PDOC ---
Attending Attestation - HPI HPI: 03/03/18 22:56 The patient is a 53 year old female with a PMH of ?colitis, chronic back pain s/ p multiple back surgeries presents with abdominal pain and associated nausea, vomiting, and diarrhea. Patient states the vomiting was nonbloody, nonbilious and the diarrhea was nonbloody, loose stools. Denies recent illnesses. Denies recent travel. LMP was 2 weeks ago. Patient denies fever/chills, cp, sob, palpitations, or back pain. Allergies: NKA Past surgical history: None reported. Social history: No reported alcohol, drug or cigarette use. PCP: Dr. Peterson - Physicial Exam PE: 03/03/18 22:56 GENERAL: Awake, alert, and fully oriented, in no acute distress HEAD: No signs of trauma EYES: PERRLA, EOMI, sclera anicteric, conjunctiva clear ENT: Auricles normal inspection, hearing grossly normal, nares patent, oropharynx clear without exudates. Moist mucosa NECK: Normal ROM, supple, no lymphadenopathy, JVD, or masses LUNGS: Breath sounds equal, clear to auscultation bilaterally. No wheezes, and no crackles HEART: Regular rate and rhythm, normal S1 and S2, no murmurs, rubs or gallops ABDOMEN: Soft, nontender, normoactive bowel sounds. No guarding, no rebound. No masses EXTREMITIES: Normal range of motion, no edema. No clubbing or cyanosis. No cords, erythema, or tenderness NEUROLOGICAL: Cranial nerves II through XII grossly intact. Normal speech, normal gait SKIN: Warm, Dry, normal turgor, no rashes or lesions noted. <Evelyn Welsh - Last Filed: 03/03/18 22:56> - Resident Resident Name: Migue Moser - ED Attending Attestation I have performed the following: I have examined & evaluated the patient, The case was reviewed & discussed with the resident, I agree w/resident's findings & plan - Medical Decision Making 03/03/18 21:02 Patient Name: Carmen Khoury Date: 1965 Address: [address] [place] [address] Sex: Female Rx Written Rx Dispensed Drug Quantity Days Supply Prescriber Name 02/17/2018 02/17/2018 morphine sulf er 15 mg tablet 60 30 Noble Beasley,Taco 02/17/2018 02/17/2018 hydrocodone-acetaminophen 10-325 mg tablet 90 30 Noble Beasley,M 12/20/2017 02/14/2018 zolpidem tartrate 10 mg tablet 30 30 Nicholas, Ammir S 01/27/2018 01/27/2018 alprazolam 2 mg tablet 14 7 Nicholas, Ammir S 12/20/2017 01/18/2018 zolpidem tartrate 10 mg tablet 30 30 Nicholas, Ammir S 01/17/2018 01/18/2018 morphine sulf er 15 mg tablet 60 30 Noble Beasley,M 01/17/2018 01/18/2018 hydrocodone-acetaminophen 10-325 mg tablet 90 30 Noble Beasley,M 12/27/2017 12/29/2017 alprazolam 2 mg tablet 40 20 Nicholas, Ammir S 12/20/2017 12/21/2017 hydrocodone-acetaminophen 10-325 mg tablet 120 30 Noble Beasley,M 12/20/2017 12/21/2017 morphine sulf er 15 mg tablet 60 30 Noble Beasley,Taco 12/20/2017 12/20/2017 zolpidem tartrate 10 mg tablet 30 30 Nicholas, Ammir S 11/18/2017 11/18/2017 hydrocodone-acetaminophen 10-325 mg tablet 120 30 Noble Beasley,M 11/18/2017 11/18/2017 morphine sulf er 15 mg tablet 60 30 Noble Beasley,Taco 10/18/2017 10/18/2017 hydrocodone-acetaminophen 10-325 mg tablet 120 30 Noble Beasley,Taco 10/18/2017 10/18/2017 morphine sulf er 15 mg tablet 60 30 Noble Beasley,M 09/06/2017 09/09/2017 morphine sulf er 15 mg tablet 60 30 Noble Beasley,M 09/06/2017 09/09/2017 hydrocodone-acetaminophen 10-325 mg tablet 120 30 Noble Beasley,M 09/01/2017 09/07/2017 alprazolam 2 mg tablet 40 20 Fran Arce 05/26/2017 08/30/2017 zolpidem tartrate 10 mg tablet 30 30 ClaudeFran 08/25/2017 08/25/2017 alprazolam 1 mg tablet 14 7 Claude Fran 08/02/2017 08/06/2017 hydrocodone-acetaminophen 10-325 mg tablet 120 30 Elzholz, Noble 08/02/2017 08/06/2017 morphine sulf er 15 mg tablet 60 30 Elzholz, Noble 05/26/2017 08/01/2017 zolpidem tartrate 10 mg tablet 30 30 Fran Arce 07/19/2017 07/19/2017 alprazolam 1 mg tablet 14 7 Claude Fran 06/29/2017 07/07/2017 morphine sulf er 15 mg tablet 60 30 Elzholz, Noble 06/29/2017 07/07/2017 hydrocodone-acetaminophen 10-325 mg tablet 120 30 Elzholz, Noble 05/26/2017 07/02/2017 zolpidem tartrate 10 mg tablet 30 30 Claude Fran 06/07/2017 06/08/2017 hydrocodone-acetaminophen 10-325 mg tablet 120 30 Elzholz, Noble 06/07/2017 06/08/2017 morphine sulf er 15 mg tablet 60 30 Elzholz, Noble 05/26/2017 06/04/2017 zolpidem tartrate 10 mg tablet 30 30 ClaudeFran 05/11/2017 05/14/2017 hydrocodone-acetaminophen 10-325 mg tablet 120 30 Elzholz, Noble 05/11/2017 05/11/2017 morphine sulf er 15 mg tablet 60 30 Elzholz, Noble 02/07/2017 05/05/2017 zolpidem tartrate 10 mg tablet 30 30 Fran Arce 04/18/2017 04/18/2017 hydrocodone-acetaminophen 10-325 mg tablet 120 30 Elzholz, Noble 02/07/2017 04/08/2017 zolpidem tartrate 10 mg tablet 30 30 Fran Arce 03/09/2017 03/16/2017 hydrocodone-acetaminophen 10-325 mg tablet 120 30 Elzholz, Noble 02/07/2017 03/09/2017 zolpidem tartrate 10 mg tablet 30 30 Fran Arce Patient Name: Carmen Khoury Date: 1965 Address: [address] [place] [address] Sex: Female Rx Written Rx Dispensed Drug Quantity Days Supply Prescriber Name 06/06/2017 06/06/2017 alprazolam 1 mg tablet 14 7 Fran Arce 03/04/18 01:40 Patient Name: CARMEN KHOURY THIS IS A PRELIMINARY REPORT FROM [facility] DATE OF SERVICE: 2018-03-04 00:48:59 IMAGES: 42 EXAM: ABDOMEN US -LIMITED right upper quadrant and limited abdominal duplex HISTORY: Rule out cholecystitis and pancreatitis COMPARISON: None. FINDINGS: Right upper quadrant ultrasound:The liver is normal, without mass or biliary duct dilation. The gallbladder is normal. The CBD is not dilated and measures2 millimeters in diameter. Right kidney measures 10.1centimeters in length and is unremarkable. The visualized aorta and IVC are normal. Pancreas is partially obscured, but appears normal. Abdominal duplex: The main portal vein demonstrates normal hepatopedal flow. IMPRESSION: Normal exam. 03/04/18 06:36 Pt feeling better and she was reassured and she went home. <Ana Perez - Last Filed: 03/04/18 06:36>
[2018-03-03 21:19] LABS: BASO % 0.5 % (0-2.0); HEMATOCRIT 42.3 % (32.4-45.2); HEMOGLOBIN 13.9 GM/dL (10.7-15.3); LYMPH % 9.8 % (8-40); MCH 26.3 pg (25.7-33.7); MCHC 32.9 g/dl (32.0-36.0); MEAN CELL VOLUME 79.9 fl (80-96); MEAN PLT VOLUME 9.5 fl (7.5-11.1); MONO % 4.9 % (3.8-10.2); NEUT % 83.8 % (42.8-82.8); PLATELET COUNT 323 K/MM3 (134-434); RBC 5.29 M/mm3 (3.60-5.2); RDW 12.9 % (11.6-15.6); WHITE BLOOD COUNT 11.2 K/mm3 (4.0-10.0)
[2018-03-03] MEDS ORDERED: ONDANSETRON 4 MG/2 ML VIAL IVPUSH ONE (21:28)
[2018-03-03] MEDS ORDERED: SODIUM CHLORIDE 1,000 ML IV STA (21:28)
[2018-03-03] MEDS ORDERED: ACETAMINOPHEN 1000 MG/100 ML VIAL (NON FORMULARY) IVPB ONE (21:28)
--- NOTE | 2018-03-03 21:34 | PDOC ---
History of Present Illness - General Chief Complaint: Pain Stated Complaint: ABD PAIN Time Seen by Provider: 03/03/18 19:52 - History of Present Illness Initial Comments: 03/03/18 21:52 Patient is a 52F with history of recurrent colitis, neck/back pain here today complaining of abdominal pain, vomiting and diarrhea for the past two days. Patient states that her abdominal pain is in the middle. Endorses multiple episodes of vomiting and diarrhea without blood. Denies vaginal pain, vaginal bleeding, pelvic pain. Patient denies fevers, chills, sick contacts, other patients with similar symptoms. Patient states that she takes no medications, was taking hydrocodone in the past, but stopped two months ago. Denies ACS history. Chart review shows multiple ED visits and admissions with morphine given, equivocal results and elopement or leaving against medical advice. iSTOP shows numerous opiate prescriptions filled, including both percocet 10s and morphine ER on 02/17. Past History - Past Medical History Allergies/Adverse Reactions: Allergies Allergy/AdvReac Type Severity Reaction Status Date / Time Penicillins Allergy Severe Difficulty Verified 01/01/18 18:26 Breathing Sulfa (Sulfonamide Allergy Verified 01/01/18 18:26 Antibiotics) Home Medications: Ambulatory Orders Hydrocodone Bitartrate [Zohydro ER] 10 mg PO BID 09/05/17 Morphine Sulfate 15 mg PO BID 09/05/17 Anemia: No Asthma: No Cancer: No Cardiac Disorders: No CVA: No COPD: No CHF: No Dementia: No Diabetes: No GI Disorders: Yes (diverticulitis, COLITIS) Disorders: No HTN: No Hypercholesterolemia: Yes Liver Disease: No Seizures: No Thyroid Disease: No - Surgical History Abdominal Surgery: Yes (Ectopic x 2) Appendectomy: No Cardiac Surgery: No Cholecystectomy: No Lung Surgery: No Neurologic Surgery: Yes (laminectomy with fusion. cervical with fusion) Orthopedic Surgery: Yes (cervical fusion,) - Immunization History Immunization Up to Date: Yes (no flu) - Suicide/Smoking/Psychosocial Hx Smoking History: Never smoked Have you smoked in the past 12 months: No Hx Alcohol Use: No Drug/Substance Use Hx: No Substance Use Type: None Hx Substance Use Treatment: No Review of Systems - Review of Systems Comments:: 03/03/18 21:56 GENERAL/CONSTITUTIONAL: No fever or chills. No weakness. HEAD, EYES, EARS, NOSE AND THROAT: No change in vision. No sore throat. CARDIOVASCULAR: No chest pain or shortness of breath RESPIRATORY: No cough, wheezing, or hemoptysis. GASTROINTESTINAL: +nausea, +vomiting, +diarrhea no constipation. GENITOURINARY: No dysuria, frequency, or change in urination. MUSCULOSKELETAL: No joint or muscle swelling or pain. No neck or back pain. SKIN: No rash NEUROLOGIC: No headache, vertigo, loss of consciousness, or change in strength/ sensation. ENDOCRINE: No increased thirst. No abnormal weight change HEMATOLOGIC/LYMPHATIC: No anemia, easy bleeding, or history of blood clots. ALLERGIC/IMMUNOLOGIC: No hives or skin allergy. *Physical Exam - Vital Signs Last Vital Signs Temp Pulse Resp BP Pulse Ox 98.1 F 86 18 151/101 H 100 03/03/18 19:53 03/03/18 19:53 03/03/18 19:53 03/03/18 19:53 03/03/18 19:53 - Physical Exam Comments: 03/03/18 21:57 GENERAL: Awake, alert, and fully oriented, in no acute distress HEAD: No signs of trauma, normocephalic, atraumatic EYES: PERRLA, EOMI, sclera anicteric, conjunctiva clear ENT: Auricles normal inspection, hearing grossly normal, nares patent, oropharynx clear without exudates. Moist mucosa NECK: Normal ROM, supple, no lymphadenopathy, JVD, or masses LUNGS: No distress, speaks full sentences, clear to auscultation bilaterally HEART: Regular rate and rhythm, normal S1 and S2, no murmurs, rubs or gallops, peripheral pulses normal and equal bilaterally. ABDOMEN: Soft, nontender, normoactive bowel sounds. No guarding, no rebound. No masses EXTREMITIES: Normal inspection, Normal range of motion, no edema. No clubbing or cyanosis. NEUROLOGICAL: Cranial nerves II through XII grossly intact. Normal speech, normal gait, no focal sensorimotor deficits SKIN: Warm, Dry, normal turgor, no rashes or lesions noted. Moderate Sedation - Procedure Monitoring Vital Signs: Procedure Monitoring Vital Signs Temperature 98.1 F 03/03/18 19:53 Pulse Rate 86 03/03/18 19:53 Respiratory Rate 18 03/03/18 19:53 Blood Pressure 151/101 H 03/03/18 19:53 O2 Sat by Pulse Oximetry (%) 100 03/03/18 19:53 ED Treatment Course - LABORATORY CBC & Chemistry Diagram: 03/03/18 21:10 03/03/18 21:50 - ADDITIONAL ORDERS Additional order review: 03/03/18 21:10 RBC 5.29 H MCV 79.9 L MCHC 32.9 RDW 12.9 D MPV 9.5 Neutrophils % 83.8 H Lymphocytes % 9.8 Monocytes % 4.9 Eosinophils % 1.0 D Basophils % 0.5 Medical Decision Making - Medical Decision Making 03/03/18 21:58 Patient is 52F here today with abdominal pain, vomiting and diarrhea. Vitals normal and stable. Abdominal exam is soft and nontender with no peritoneal signs. Patient is moving comfortably, nontender with movement, nontender with stethoscope. Patient reports pain with extremely light hand palpation, but reports nothing with stethoscope. DDx includes, but is not limited to: opiate withdrawal, gastroenteritis. Will hydrate and treat with zofran and tylenol. Will avoid opiates. Will evaluate with cbc, cmp, lipase, ua, serum preg. Likely discharge. 03/04/18 01:33 Laboratory Tests 03/03/18 03/03/18 03/03/18 21:10 21:47 21:50 WBC 11.2 H Hgb 13.9 Plt Count 323 AST 44 H ALT 75 H Ur Leukocyte Esterase 2+ H Urine WBC (Auto) 10 CBC normal. CMP shows mild elevation in liver enzymes. UA shows ?infection. US ordered due to LFTs, still no RUQ tenderness on exam. US normal. *DC/Admit/Observation/Transfer Diagnosis at time of Disposition: Abdominal pain Qualifiers: Abdominal location: unspecified location Qualified Code(s): R10.9 - Unspecified abdominal pain - Discharge Dispostion Disposition: HOME Condition at time of disposition: Good Decision to Admit order: No - Referrals Referrals: Skip Peterson MD [Primary Care Provider] - - Patient Instructions Printed Discharge Instructions: DI for Abdominal Pain-Adult Additional Instructions: Please follow up with your primary care doctor this week. Please return if you have any new, worsening or concerning symptoms, especially fever, increasing pain or repeated vomiting. - Post Discharge Activity Forms/Work/School Notes: Back to Work
[2018-03-03] MEDS ORDERED: FAMOTIDINE 20 MG/50 ML IVPB 20 MG/50 ML MG IVPB ONE ×2 (21:49→22:11)
[2018-03-03 22:06] LABS: URINE APPEARANCE CLEAR; URINE BILIRUBIN NEGATIVE (<2.0 mg/dL); URINE COLOR LTYELLOW; URINE GLUCOSE (UA) NEGATIVE (NEGATIVE); URINE KETONE NEGATIVE (NEGATIVE); URINE LEUK ESTERASE 2+ (NEGATIVE); URINE NITRITE NEGATIVE (NEGATIVE); URINE PROTEIN NEGATIVE (NEGATIVE); URINE UROBILINOGEN NEGATIVE mg/dL (0.2-1.0)
[2018-03-03] MEDS ORDERED: ACETAMINOPHEN INJECTION 100 ML IVPB ONE (22:10)
[2018-03-03 22:11] LABS: EPI CELLS RARE /HPF (FEW); URINE MUCUS RARE
[2018-03-03] MEDS ORDERED: ONDANSETRON 4 MG/2 ML VIAL ONE (22:11)
[2018-03-03 22:49] LABS: ALK PHOS 164 U/L (45-117); ANION GAP 11 MMOL/L (8-16); BILIRUBIN,TOTAL 0.6 mg/dL (0.2-1); BLOOD UREA NITROGEN 9 mg/dL (7-18); CALCIUM 9.2 mg/dL (8.5-10.1); CHLORIDE 106 mmol/L (98-107); CO2 27 mmol/L (21-32); CREATININE 1.2 mg/dL (0.55-1.3); GLUCOSE,RANDOM 77 mg/dL (74-106); LIPASE 125 U/L (73-393); POTASSIUM 3.5 mmol/L (3.5-5.1); SGOT/AST 44 U/L (15-37); SGPT/ALT 75 U/L (13-61); SODIUM 144 mmol/L (136-145); TOT PROT 7.5 g/dl (6.4-8.2)
[2018-03-03] MEDS ORDERED: NITROFURANTOIN MACROCRYSTAL 50 MG CAPSULE (FP) PO SCH (23:00)
[2018-03-03] MEDS ORDERED: NITROFURANTOIN MACROCRYSTAL 50 MG CAPSULE (FP) ONE (23:46)
[2018-03-04] MEDS ORDERED: morphine CARPU-JECT 2 MG/1 ML DISP.SYRIN IVPUSH ONE (00:30)
[2018-03-04] MEDS ORDERED: MORPHINE SULFATE 2 MG/ML VIAL ONE (00:45)
[2018-03-04 02:04] VITALS: BP 132/78; PULSE 95
== END 2018-03-04 02:04 | disposition home or self-care (01) ==
LOC: JER 19:48
PROC: 3E033GC Introduction of Other Therapeutic Substance into Peripheral Vein, Percutaneous Approach (ICD-10-PCS; principal; 2018-03-03)
PROC: 3E033GC Introduction of Other Therapeutic Substance into Peripheral Vein, Percutaneous Approach (ICD-10-PCS; 2018-03-03)
PROC: 3E033NZ Introduction of Analgesics, Hypnotics, Sedatives into Peripheral Vein, Percutaneous Approach (ICD-10-PCS; 2018-03-03)
PROC: 3E033NZ Introduction of Analgesics, Hypnotics, Sedatives into Peripheral Vein, Percutaneous Approach (ICD-10-PCS; 2018-03-03)
DX: R10.9 Unspecified abdominal pain (principal); R94.5 Abnormal results of liver function studies; Z87.19 Personal history of other diseases of the digestive system; E78.00 Pure hypercholesterolemia, unspecified; Z98.1 Arthrodesis status; Z88.0 Allergy status to penicillin; Z88.2 Allergy status to sulfonamides
CPT/HCPCS: 36415; 76705-TC; 80053; 81003; 81015; 83690; 84703; 85025; 96365; 96375; 99282-25; J0131; J7030

== ENCOUNTER 2019-03-01 18:07 | Emergency (ER) | payer OTHER ==
[2019-03-01 18:15] VITALS: BP 129/86; TEMP 102.8; BMI 30.2
[2019-03-01] MEDS ORDERED: ACETAMINOPHEN 500 MG TABLET (FP) PO ONE (19:16)
[2019-03-01] MEDS ORDERED: DEXAMETHASONE LIQUID 0.5 MG/5 ML PO ONE (19:17)
[2019-03-01] MEDS ORDERED: ALBUTEROL SO4 2.5/IPRATROPIUM 0.5 INH SOL 3 ML VIAL.NEB. NEB ONE ×2 (19:17→19:18)
[2019-03-01] MEDS ORDERED: DEXAMETHASONE SOD PHOSPHATE 10 MG/1 ML VIAL ONE (19:18)
[2019-03-01] MEDS ORDERED: ACETAMINOPHEN 500 MG TABLET (FP) ONE (19:18)
--- NOTE | 2019-03-01 19:27 | PDOC ---
History of Present Illness - General Chief Complaint: Cold Symptoms Stated Complaint: FEVER Time Seen by Provider: 03/01/19 19:05 History Source: Patient Exam Limitations: Clinical Condition - History of Present Illness Initial Comments: 03/01/19 19:22 Patient with no significant past medical history present with complaint of one- week history of persistent cough, fever, body aches, weakness, nasal congestion and sore throat. Patient reported she was seen in [facility] a week ago with symptoms starting and testing done there which she was discharged from [facility] with advised to do conservative management but report symptoms has been persistent. Reported family members has similar symptoms but it all feels better but her symptoms persist. Patient reported last taking Tylenol yesterday for fever. Denies any other symptoms. Patient reported having pneumonia few months ago Is this a multiple visit Asthma Patient?: No Timing/Duration: 1 week Past History - Past Medical History Allergies/Adverse Reactions: Allergies Allergy/AdvReac Type Severity Reaction Status Date / Time Penicillins Allergy Severe Difficulty Verified 03/01/19 18:15 Breathing Sulfa (Sulfonamide Allergy Verified 03/01/19 18:15 Antibiotics) Home Medications: Ambulatory Orders Hydrocodone Bitartrate [Zohydro ER] 10 mg PO BID 09/05/17 Morphine Sulfate 15 mg PO BID 09/05/17 Anemia: No Asthma: No Cancer: No Cardiac Disorders: No CVA: No COPD: No CHF: No Dementia: No Diabetes: No GI Disorders: Yes (diverticulitis, COLITIS) Disorders: No HTN: No Hypercholesterolemia: Yes Liver Disease: No Seizures: No Thyroid Disease: No - Surgical History Abdominal Surgery: Yes (Ectopic x 2) Appendectomy: No Cardiac Surgery: No Cholecystectomy: No Lung Surgery: No Neurologic Surgery: Yes (laminectomy with fusion. cervical with fusion) Orthopedic Surgery: Yes (cervical fusion,) - Immunization History Immunization Up to Date: Yes (no flu) - Psycho Social/Smoking Cessation Hx Smoking History: Never smoked Have you smoked in the past 12 months: No Hx Alcohol Use: No Drug/Substance Use Hx: No Substance Use Type: None Hx Substance Use Treatment: No Review of Systems - Review of Systems Able to Perform ROS?: Yes Is the patient limited Divehi proficient: No Constitutional: Yes: Chills, Fever, Malaise HEENTM: Yes: Symptoms Reported, See HPI, Nose Congestion. No: Eye Pain, Blurred Vision, Tearing, Recent change in vision, Double Vision, Cataracts, Ear Pain, Ocular Prothesis, Ear Discharge, Nose Pain, Tinnitus, Nose Bleeding, Hearing Loss, Throat Pain, Throat Swelling, Mouth Pain, Dental Problems, Difficulty Swallowing, Mouth Swelling, Other Respiratory: Yes: Symptoms reported, See HPI, Cough. No: Orthopnea, Shortness of Breath, SOB with Exertion, SOB at Rest, Stridor, Wheezing, Productive cough, Hemoptysis, Other Cardiac (ROS): No: Symptoms Reported, See HPI, Chest Pain, Edema, Irregular Heart Rate, Lightheadedness, Palpitations, Syncope, Chest Tightness, Other ABD/GI: Yes: Symptoms Reported, See HPI, Nausea. No: Abd. Pain w/ defecation, Blood Streaked Bowels, Constipated, Diarrhea, Difficulty Swallowing, Poor Fluid Intake, Rectal Bleeding, Vomiting, Abdominal cramping : No: Symptoms Reported Musculoskeletal: No: Symptoms Reported Integumentary: No: Symptoms Reported, Rash Neurological: Yes: Symptoms reported, Headache, Weakness. No: Numbness, Paresthesia, Pre-Existing Deficit, Seizure, Tingling, Unsteady Gait, Dizziness All Other Systems: Reviewed and Negative *Physical Exam - Vital Signs Last Vital Signs Temp Pulse Resp BP Pulse Ox 102.8 F H 130 H 18 129/86 99 03/01/19 18:11 03/01/19 18:11 03/01/19 18:11 03/01/19 18:11 03/01/19 18:11 - Physical Exam 03/01/19 19:26 GENERAL: Well developed, well nourished. Awake and alert. No acute distress. HEENT: Normocephalic, atraumatic. PERRLA, EOMI. No conjunctival pallor. Sclera are non-icteric. Moist mucous membranes. Oropharynx is clear. NECK: Supple. Full ROM. CARDIOVASCULAR: Regular rate and rhythm. No murmurs, rubs, or gallops. Distal pulses are 2+ and symmetric. PULMONARY: No evidence of respiratory distress. Mild expiratory wheeze on lung bases bilateral. No rales or rhonchi. ABDOMINAL: Soft. Non-tender. Non-distended. No rebound or guarding. No organomegaly. Normoactive bowel sounds. MUSCULOSKELETAL Normal range of motion at all joints. SKIN: Warm and dry. Normal capillary refill. No rashes. No cyanosis. NEUROLOGICAL: Alert, awake, appropriate. Gait is normal without ataxia. PSYCHIATRIC: Cooperative. Good eye contact. Appropriate mood General Appearance: Yes: Nourished, Appropriately Dressed, Mild Distress ED Treatment Course - RADIOLOGY Radiology Studies Ordered: Category Date Time Status CHEST PA & LAT [RAD] Stat Radiology 03/01/19 19:21 Ordered Medical Decision Making - Medical Decision Making 03/01/19 19:24 Patient with no significant past medical history present with complaint of one- week history of persistent cough, fever, body aches, weakness, nasal congestion and sore throat. Patient reported she was seen in [facility] a week ago with symptoms starting and testing done there which she was discharged from [facility] with advised to do conservative management but report symptoms has been persistent. Reported family members has similar symptoms but it all feels better but her symptoms persist. Patient reported last taking Tylenol yesterday for fever. Denies any other symptoms. Patient reported having pneumonia few months ago Exam significant for fever 102.8 F with mild expiratory wheeze and patient with symptoms of mild discomfort. Patient symptoms likely influenza versus less likely strep or pneumonia. Rapid flu and rapid strep ordered to rule out influenza. Checks x-ray ordered to rule out pneumonia. Patient given Tylenol 1 g p.o. for fever. DuoNeb and Decadron 10 mg p.o. ordered for cough and wheezing 03/01/19 20:08 Rapid strep and rapid flu was negative. Patient sick looking and given negative flu test and strep test, will do basic blood work and IV fluids. Chest x-ray ordered to rule out chest pathology 03/01/19 20:24 Patient transferred to main ED for follow-up work-up as patient will need septic work-up. Patient signed out to Dr. Buck in main ED for follow-up management Discharge - Discharge Information Problems reviewed: Yes Clinical Impression/Diagnosis: Fever and chills Condition: Stable - Follow up/Referral Referrals: Skip Peterson MD [Primary Care Provider] - - Patient Discharge Instructions - Post Discharge Activity
[2019-03-01] MEDS ORDERED: LACTATED RINGERS SOLUTION 1000 ML INFUS.BAG IV ONE (20:07)
[2019-03-01 20:54] LABS: BASO % 0.4 % (0-2.0); HEMATOCRIT 40.9 % (32.4-45.2); HEMOGLOBIN 13.1 GM/dL (10.7-15.3); LYMPH % 6.8 % (8-40); MCH 26.3 pg (25.7-33.7); MEAN CELL VOLUME 82.1 fl (80-96); MEAN PLT VOLUME 9.7 fl (7.5-11.1); NEUT % 85.8 % (42.8-82.8); PLATELET COUNT 191 K/MM3 (134-434); RBC 4.99 M/mm3 (3.60-5.2); RDW 13.1 % (11.6-15.6); WHITE BLOOD COUNT 13.9 K/mm3 (4.0-10.0)
[2019-03-01 21:20] LABS: ALBUMIN 3.4 g/dl (3.4-5.0); BILIRUBIN,TOTAL 0.6 mg/dL (0.2-1); CALCIUM 8.6 mg/dL (8.5-10.1); CREATININE 1.1 mg/dL (0.55-1.3); POTASSIUM 3.3 mmol/L (3.5-5.1); TOT PROT 6.7 g/dl (6.4-8.2)
--- NOTE | 2019-03-01 21:27 | PDOC ---
*Physical Exam - Vital Signs Last Vital Signs Temp Pulse Resp BP Pulse Ox 102.8 F H 130 H 18 129/86 99 03/01/19 18:11 03/01/19 18:11 03/01/19 18:11 03/01/19 18:11 03/01/19 18:11 Vital Signs - Vital Signs #1 Time: 00:26 Pulse Rate: 80 ED Treatment Course - LABORATORY CBC & Chemistry Diagram: 03/01/19 20:35 03/01/19 20:35 - ADDITIONAL ORDERS Additional order review: Laboratory Results 03/01/19 03/01/19 20:35 20:35 Sodium 137 Potassium 3.3 L Chloride 103 Carbon Dioxide 25 Anion Gap 9 BUN 7.0 Creatinine 1.1 Est GFR (CKD-EPI)AfAm 66.85 Est GFR (CKD-EPI)NonAf 57.68 Random Glucose 127 H Lactic Acid 0.9 Calcium 8.6 Total Bilirubin 0.6 AST 14 L ALT 14 Alkaline Phosphatase 75 Total Protein 6.7 Albumin 3.4 03/01/19 20:35 RBC 4.99 MCV 82.1 MCHC 32.0 RDW 13.1 MPV 9.7 Neutrophils % 85.8 H Lymphocytes % 6.8 L D Monocytes % 7.0 Eosinophils % 0.0 D Basophils % 0.4 - Medications Given in the ED: ED Medications Discontinued Medications Generic Name Dose Route Start Last Admin Trade Name Freq PRN Reason Stop Dose Admin Acetaminophen 1,000 mg 03/01/19 19:16 03/01/19 19:33 Tylenol - PO 03/01/19 19:17 1,000 mg ONCE ONE Administration Albuterol/Ipratropium 2 amp 03/01/19 19:17 03/01/19 19:34 Duoneb - NEB 03/01/19 19:18 2 amp ONCE ONE Administration Dexamethasone 10 mg 03/01/19 19:17 03/01/19 19:34 Decadron Liquid - PO 03/01/19 19:18 10 mg ONCE ONE Administration Lactated Ringer's 1,000 ml 03/01/19 20:07 03/01/19 20:47 Lactated Ringers Solution IV 03/01/19 20:08 1,000 ml ONCE ONE Administration Medical Decision Making - Medical Decision Making 03/02/19 00:26 Received signout from [facility]. Patient is likely viral syndrome. CXR clear. Labs reassuring. HR 130 initially, now 80 after 1.5L. Patient feeling better, asking for medicine for headache and wanting to go home. Will discharge with return precautions. Discharge - Discharge Information Problems reviewed: Yes Clinical Impression/Diagnosis: Fever and chills, Viral syndrome Condition: Good Disposition: HOME - Admission No - Follow up/Referral Referrals: Skip Peterson MD [Primary Care Provider] - - Patient Discharge Instructions Patient Printed Discharge Instructions: DI for Viral Upper Respiratory Infection -- Adult Additional Instructions: Please follow up with your primary care doctor in the next 3-5 days. Please return if you have any new, worsening or concerning symptoms, especially increasing pain and shortness of breath. Please take motrin and tylenol as needed for pain. - Post Discharge Activity
[2019-03-01] MEDS ORDERED: LACTATED RINGERS SOLUTION 1,000 ML/1,000 ML INFUS.BAG IV STA (21:29)
[2019-03-01 22:12] LABS: URINE APPEARANCE CLEAR; URINE BILIRUBIN NEGATIVE (NEGATIVE); URINE COLOR YELLOW; URINE GLUCOSE (UA) NEGATIVE (NEGATIVE); URINE KETONE 1+ (NEGATIVE); URINE LEUK ESTERASE NEGATIVE (NEGATIVE); URINE NITRITE NEGATIVE (NEGATIVE); URINE PROTEIN NEGATIVE (NEGATIVE)
[2019-03-01] MEDS ORDERED: guaiFENesin 200 MG/10 ML 10 ML UNIT-DOSE CUPS ONE (23:17)
[2019-03-01] MEDS ORDERED: guaiFENesin/D-METHORPHAN HB 10 ML UNIT-DOSE CUPS PO ONE (23:18)
[2019-03-02 00:30] VITALS: PULSE 80
[2019-03-02] MEDS ORDERED: METOCLOPRAMIDE HCL 10 MG TABLET (FP) PO ONE ×2 (00:30→00:53)
== END 2019-03-02 00:57 | disposition home or self-care (01) ==
LOC: JER 18:07 → JERFT 18:07 → JER 03-02 00:57
PROC: 3E0F7GC Introduction of Other Therapeutic Substance into Respiratory Tract, Via Natural or Artificial Opening (ICD-10-PCS; principal; 2019-03-01)
DX: J06.9 Acute upper respiratory infection, unspecified (principal); B97.89 Other viral agents as the cause of diseases classified elsewhere; E78.00 Pure hypercholesterolemia, unspecified; Z87.19 Personal history of other diseases of the digestive system; Z98.1 Arthrodesis status; Z88.0 Allergy status to penicillin; Z88.2 Allergy status to sulfonamides
CPT/HCPCS: 36415; 71046-TC-FY; 80053; 81003; 83605; 85025; 87040; 87070; 87086; 87804; 87880; 99283-25

== ENCOUNTER 2019-04-02 13:47 | Emergency (ER) | payer OTHER ==
[2019-04-02 13:53] VITALS: TEMP 97.7; BMI 29.0
--- NOTE | 2019-04-02 13:53 | PDOC ---
Rapid Medical Evaluation Time Seen by Provider: 04/02/19 13:51 Medical Evaluation: Allergies Allergy/AdvReac Type Severity Reaction Status Date / Time Penicillins Allergy Severe Difficulty Verified 03/01/19 18:15 Breathing Sulfa (Sulfonamide Allergy Verified 03/01/19 18:15 Antibiotics) 04/02/19 13:51 This patient had brief-in person evaluation in triage cc:vomiting and diarrhea x 3 days HPI: Patient reports vomiting and diarrhea x 3 days States history of colitis, no blood in vomitus or stool PE: unlabored breathing Abdomen with generalize tenderness, + bowel sounds orders:labs ordered This patient will proceed to main ed for further evaluation Discharge Disposition - Diagnosis Abdominal pain - Referrals - Patient Instructions - Post Discharge Activity
[2019-04-02 14:41] LABS: BASO % 0.4 % (0-2.0); EOS % 3.6 % (0-4.5); HEMATOCRIT 43.6 % (32.4-45.2); LYMPH % 15.7 % (8-40); MCH 26.5 pg (25.7-33.7); MCHC 32.1 g/dl (32.0-36.0); MEAN CELL VOLUME 82.5 fl (80-96); MEAN PLT VOLUME 9.4 fl (7.5-11.1); NEUT % 75.3 % (42.8-82.8); PLATELET COUNT 223 K/MM3 (134-434); RBC 5.29 M/mm3 (3.60-5.2); RDW 14.2 % (11.6-15.6); WHITE BLOOD COUNT 10.8 K/mm3 (4.0-10.0)
[2019-04-02 15:08] LABS: BILIRUBIN,TOTAL 0.6 mg/dL (0.2-1); BLOOD UREA NITROGEN 10.6 mg/dL (7-18); CALCIUM 9.4 mg/dL (8.5-10.1); TOT PROT 7.6 g/dl (6.4-8.2)
[2019-04-02] MEDS ORDERED: morphine CARPU-JECT 2 MG/1 ML DISP.SYRIN IVPUSH ONE (15:56)
[2019-04-02] MEDS ORDERED: SODIUM CHLORIDE 1,000 ML IV STA (15:56)
[2019-04-02] MEDS ORDERED: ONDANSETRON 4 MG/2 ML VIAL IVPUSH ONE (15:56)
[2019-04-02] MEDS ORDERED: ONDANSETRON 4 MG/2 ML VIAL ONE (16:34)
[2019-04-02] MEDS ORDERED: MORPHINE SULFATE 2 MG/ML VIAL ONE (16:34)
[2019-04-02 16:36] LABS: EPI CELLS 2.3 /HPF (0-5/HPF); HYALINE CASTS 16 /lpf (0-8); URINE APPEARANCE CLEAR; URINE BACTERIA 38.5 /hpf (NEGATIVE); URINE BILIRUBIN NEGATIVE (NEGATIVE); URINE COLOR YELLOW; URINE GLUCOSE (UA) NEGATIVE (NEGATIVE); URINE KETONE NEGATIVE (NEGATIVE); URINE LEUK ESTERASE 1+ (NEGATIVE); URINE NITRITE NEGATIVE (NEGATIVE); URINE PROTEIN NEGATIVE (NEGATIVE); URINE RBC 1 /hpf (0-4); URINE UROBILINOGEN 0.2 mg/dL (0.2-1.0); URINE WBC 21 /hpf (0-5)
--- NOTE | 2019-04-02 16:39 | PDOC ---
History of Present Illness - General Chief Complaint: Pain Stated Complaint: ABD PAIN Time Seen by Provider: 04/02/19 13:51 History Source: Patient Exam Limitations: No Limitations - History of Present Illness Travel History: No Initial Comments: 04/02/19 16:07 53-year-old female presents the emergency room With complaints of left lower quadrant cramping associated with diarrhea and chills for the past 2 days. Patient states history of colitis and is concerned with the same again. Patient otherwise denies recent travel, recent illness or recent sick contacts. Patient has no urinary complaints respiratory complaints or cardiac complaints Timing/Duration: reports: constant Quality: reports: mild, moderate (Intermittent), cramping Abdominal Pain Onset Location: reports: LLQ Pain Radiation: denies: no radiation Activities at Onset: reports: none Aggravating Factors: improves with: None Alleviating Factors: improves with: None Past History - Travel Traveled outside of the country in the last 30 days: No Close contact w/someone who was outside of country & ill: No - Past Medical History Allergies/Adverse Reactions: Allergies Allergy/AdvReac Type Severity Reaction Status Date / Time Penicillins Allergy Severe Difficulty Verified 04/02/19 13:53 Breathing Sulfa (Sulfonamide Allergy Verified 04/02/19 13:53 Antibiotics) Home Medications: Ambulatory Orders Hydrocodone Bitartrate [Zohydro ER] 10 mg PO BID 09/05/17 Morphine Sulfate 15 mg PO BID 09/05/17 Anemia: No Asthma: No Cancer: No Cardiac Disorders: No CVA: No COPD: No CHF: No Dementia: No Diabetes: No GI Disorders: Yes (diverticulitis, COLITIS) Disorders: No HTN: Yes (NOT TAKING MEDS) Hypercholesterolemia: Yes Liver Disease: No Seizures: No Thyroid Disease: No - Surgical History Abdominal Surgery: Yes (Ectopic x 2) Appendectomy: No Cardiac Surgery: No Cholecystectomy: No Lung Surgery: No Neurologic Surgery: Yes (laminectomy with fusion. cervical with fusion) Orthopedic Surgery: Yes (cervical fusion,) - Immunization History Immunization Up to Date: Yes (no flu) - Psycho Social/Smoking Cessation Hx Smoking History: Never smoked Have you smoked in the past 12 months: No Information on smoking cessation initiated: No Hx Alcohol Use: No Drug/Substance Use Hx: No Substance Use Type: None Hx Substance Use Treatment: No Patient Lives Alone: No Lives with/in: spouse/SO Abd/GI Specific PMHX - Complaint Specific PMHX Colitis: Yes Diverticulitis: Yes Review of Systems - Review of Systems Able to Perform ROS?: Yes Constitutional: Yes: Chills HEENTM: No: Symptoms Reported Respiratory: No: Symptoms reported Cardiac (ROS): No: Symptoms Reported ABD/GI: Yes: Diarrhea, Nausea, Vomiting, Abdominal cramping : No: Symptoms Reported Musculoskeletal: No: Symptoms Reported Integumentary: No: Symptoms Reported Neurological: No: Symptoms reported *Physical Exam - Vital Signs Last Vital Signs Temp Pulse Resp BP Pulse Ox 97.7 F 83 18 159/100 100 04/02/19 13:49 04/02/19 13:49 04/02/19 13:49 04/02/19 13:49 04/02/19 13:49 - Physical Exam General Appearance: Yes: Nourished, Appropriately Dressed. No: Apparent Distress HEENT: positive: EOMI, Pharynx Normal. negative: Pale Conjunctivae Neck: positive: Supple Respiratory/Chest: positive: Lungs Clear, Normal Breath Sounds. negative: Respiratory Distress, Accessory Muscle Use Cardiovascular: positive: Regular Rhythm, Regular Rate. negative: Murmur Gastrointestinal/Abdominal: positive: Normal Bowel Sounds, Soft, Tenderness ( Left lower quadrant). negative: Distended, Guarding, Rebound Integumentary: positive: Normal Color, Warm, Moist Neurologic: positive: Motor Strength 5/5 (Ambulatory) ED Treatment Course - LABORATORY CBC & Chemistry Diagram: 04/02/19 14:18 04/02/19 14:18 - ADDITIONAL ORDERS Additional order review: Laboratory Results 04/02/19 14:18 Sodium 142 Potassium 4.0 Chloride 107 Carbon Dioxide 26 Anion Gap 9 BUN 10.6 Creatinine 1.0 Est GFR (CKD-EPI)AfAm 75.01 Est GFR (CKD-EPI)NonAf 64.72 Random Glucose 90 Calcium 9.4 Total Bilirubin 0.6 AST 14 L ALT 19 Alkaline Phosphatase 117 Total Protein 7.6 Albumin 4.0 Total Amylase 66 Lipase 76 04/02/19 14:18 RBC 5.29 H MCV 82.5 MCHC 32.1 RDW 14.2 MPV 9.4 Neutrophils % 75.3 Lymphocytes % 15.7 D Monocytes % 5.0 Eosinophils % 3.6 D Basophils % 0.4 Medical Decision Making - Medical Decision Making 04/02/19 16:39 Chief complaint: Left lower quadrant pain associated nausea vomiting diarrhea. Patient history of colitis. Patient states similar complaints. Exam: Patient with left lower quadrant tenderness on exam. Vital signs stable. No CVA tenderness. Plan: Labs, urine, morphine, Zofran, IV fluids and abdominal CT 04/02/19 18:44 CT otherwise essentially normal with no evidence of acute pathology. I will discharge patient home with antibiotics along with Percocet. Patient can follow -up with her primary care doctor 04/02/19 18:45 Laboratory Tests 04/02/19 04/02/19 04/02/19 14:18 14:18 16:15 WBC 10.8 H Hgb 14.0 Hct 43.6 Absolute Neuts (auto) 8.2 H Sodium 142 Potassium 4.0 Chloride 107 Carbon Dioxide 26 Anion Gap 9 BUN 10.6 Creatinine 1.0 Urine Protein Negative Urine Glucose (UA) Negative Urine Ketones Negative Urine Nitrite Negative Urine Bilirubin Negative Ur Leukocyte Esterase 1+ H Urine WBC (Auto) 21 Urine RBC (Auto) 1 Urine Casts (Auto) 16 Urine Bacteria (Auto) 38.5 Discharge - Discharge Information Problems reviewed: Yes Clinical Impression/Diagnosis: Abdominal pain, UTI (urinary tract infection) Condition: Improved Disposition: HOME - Follow up/Referral Referrals: Skip Peterson MD [Primary Care Provider] - - Patient Discharge Instructions Patient Printed Discharge Instructions: DI for Urinary Tract Infection (UTI) Additional Instructions: Drink plenty of fluids. Clean from front to back after urination. Take antibiotics as prescribed. Take Percocet as needed for pain. Follow-up with your doctor. - Post Discharge Activity
[2019-04-02 19:41] VITALS: BP 164/106; PULSE 79
== END 2019-04-02 19:20 | disposition home or self-care (01) ==
LOC: JER 13:47
PROC: 3E033NZ Introduction of Analgesics, Hypnotics, Sedatives into Peripheral Vein, Percutaneous Approach (ICD-10-PCS; principal; 2019-04-02)
PROC: 3E033GC Introduction of Other Therapeutic Substance into Peripheral Vein, Percutaneous Approach (ICD-10-PCS; 2019-04-02)
DX: N39.0 Urinary tract infection, site not specified (principal); R10.9 Unspecified abdominal pain; I10 Essential (primary) hypertension; Z87.19 Personal history of other diseases of the digestive system; Z88.0 Allergy status to penicillin; Z88.2 Allergy status to sulfonamides
CPT/HCPCS: 36415; 74176-TC; 80053; 81003; 82150; 83690; 85025; 87086; 96374; 96375; 99283-25; J7030

== ENCOUNTER 2020-10-12 11:59 | Emergency (ER) | payer OTHER ==
[2020-10-12 12:30] VITALS: BP 150/92; PULSE 68; TEMP 97.6; BMI 23.3
[2020-10-12] MEDS ORDERED: ACETAMINOPHEN 1000 MG/100 ML VIAL (NON FORMULARY) IVPB ONE (13:36)
[2020-10-12] MEDS ORDERED: MAG HYDROX/AL HYDROX/SIMETH -MYLANTA- ORAL SUSPENSION PO ONE (13:36)
[2020-10-12] MEDS ORDERED: FAMOTIDINE 20 MG/50 ML IVPB 20 MG/50 ML MG IVPB ONE ×2 (13:36→14:15)
[2020-10-12] MEDS ORDERED: SODIUM CHLORIDE 0.9% 1000 ML INFUS.BAG IV ONE (13:36)
[2020-10-12] MEDS ORDERED: ONDANSETRON 4 MG/2 ML VIAL IVPUSH ONE (13:37)
[2020-10-12] MEDS ORDERED: ONDANSETRON 4 MG/2 ML VIAL ONE (14:02)
[2020-10-12] MEDS ORDERED: ACETAMINOPHEN INJECTION 100 ML IVPB ONE (14:15)
[2020-10-12] MEDS ORDERED: MAG HYDROX/AL HYDROX/SIMETH 30 ML UNIT-DOSE CUP ONE (14:15)
[2020-10-12 15:17] LABS: HEMATOCRIT 42.5 % (32.4-45.2); HEMOGLOBIN 14.3 GM/dL (10.7-15.3); MCH 27.8 pg (25.7-33.7); MCHC 33.6 g/dl (32.0-36.0); MEAN CELL VOLUME 82.8 fl (80-96); MEAN PLT VOLUME 9.5 fl (7.5-11.1); PLATELET COUNT 293 10^3/uL (134-434); RBC 5.13 M/mm3 (3.60-5.2); RDW 13.6 % (11.6-15.6); WHITE BLOOD COUNT 12.3 K/mm3 (4.0-10.0)
[2020-10-12] MEDS ORDERED: METOCLOPRAMIDE HCL INJECTION 10 MG/2 ML VIAL IVPB ONE (15:22)
[2020-10-12] MEDS ORDERED: KETOROLAC TROMETHAMINE 15 MG/ML VIAL IVPUSH ONE (15:22)
[2020-10-12 15:36] LABS: ANISOCYTOSIS 0; MACROCYTOSIS 0; PLATELET ESTIMATE NORMAL
[2020-10-12 15:44] LABS: ALBUMIN 4.8 g/dl (3.4-5.0); CALCIUM 9.8 mg/dL (8.5-10.1)
[2020-10-12 15:45] LABS: BLOOD UREA NITROGEN 12.3 mg/dL (7-18)
[2020-10-12 15:48] LABS: CREATININE 1.1 mg/dL (0.55-1.3)
[2020-10-12 15:49] LABS: BILIRUBIN,TOTAL 0.5 mg/dL (0.2-1); TOT PROT 8.2 g/dl (6.4-8.2)
[2020-10-12] MEDS ORDERED: METOCLOPRAMIDE HCL INJECTION 10 MG/2 ML VIAL ONE (15:59)
[2020-10-12] MEDS ORDERED: KETOROLAC TROMETHAMINE 15 MG/ML VIAL ONE (15:59)
== END 2020-10-12 16:00 | disposition left against medical advice (07) ==
LOC: JER 11:59
DX: R10.84 Generalized abdominal pain (principal); R11.10 Vomiting, unspecified; Z76.5 Malingerer [conscious simulation]
CPT/HCPCS: 36415; 80053; 83690; 85025; 93005; 93010; 99284-25; J0131